=== PATIENT | female | born 1945 | race Caucasian/White ===

== ENCOUNTER 2023-10-23 07:47 | Emergency (ER) | payer MEDICARE, MEDICAID, SELFPAY ==
--- NOTE | ~2023-10-23 | CT_ITS ---
EXAMINATION: CT brain wo con DATE: 10/23/2023 08:27 INDICATION: Minor head injury TECHNIQUE: Computed tomography (CT) of the head was performed without intravenous contrast. The dose- length product was 1210.67 mGy-cm. Automated exposure control and iterative reconstruction technique were employed. COMPARISON: None FINDINGS: Generalized atrophy. There are scattered mild periventricular and subcortical white matter changes, most likely related to small vessel ischemic disease (microangiopathy). Study limited due to motion artifact. No ventriculomegaly or midline shift. There is intracranial atherosclerosis. There is chronic left maxillary sinus disease with mucoperiosteal reaction. Mastoids are pneumatized. No ac ryan intracranial hemorrhage, infarction, mass or mass effect. IMPRESSION: 1. No acute intracranial abnormality. Reviewed, dictated and finalized at location B.
--- NOTE | ~2023-10-23 | CT_ITS ---
EXAMINATION: CT cervical spine wo con DATE: 10/23/2023 08:28 INDICATION: Neck pain after fall TECHNIQUE: Computed tomography (CT) of the cervical spine was performed without intravenous contrast. The dose-length product was 672 mGy-cm. Automated exposure control and iterative reconstruction technique were employed. COMPARISON: None FINDINGS: There is advanced degenerative disc disease at all cervical spine levels. There is degenera tive anterolisthesis at C2-3 and C3-4. There is advanced multilevel uncinate and facet hypertrophy. M ild levocurvature of the cervical spine. Lung apices are normal. No significant paraspinal soft tissu e abnormality. Odontoid process is normal. Craniovertebral junction within normal limits. No evidence for perched facet. IMPRESSION: 1. No acute abnormality of the cervical spine. 2: Severe cervical spondylosis. Reviewed, dictated and finalized at location B.
--- NOTE | ~2023-10-23 | XR_ITS ---
XR hip BI 2V w AP pelvis 10/23/2023 08:34 Indication: Hip pain after fall Procedure: AP pelvis and 2 views each hip Comparison: No prior studies for comparison. Findings: There is a right total hip arthroplasty. Pelvic rings are intact. No acute fracture or trau matic malalignment. Mild osteoarthritis of the left hip. There is lower lumbar spondylosis. Impression: 1: No acute bone or joint abnormality. Reviewed, dictated and finalized at location B. Impression: 1: No acute bone or joint abnormality.
[2023-10-23 07:58] VITALS: BP 125/84; PULSE 94; RESP 14; TEMP 36.6; O2SAT 98
--- NOTE | 2023-10-23 08:02 | ED.FALL ---
HPI - Fall General Chief Complaint: Fall Stated Complaint: fall Time Seen by Provider: 10/23/23 07:52 Source: EMS History of Present Illness HPI Narrative: Patient is a 78-year-old female with schizoaffective disorder who presents ER after being found down on the ground at her long term. Patient cannot tell us why she fell. She has reported hip pain intermittently. She is not on any blood thinning medications. She arrives in a cervical collar. At baseline patient is oriented x1 and she appears to be at her baseline at this time. Review of Systems Review of Systems: ROS unobtainable: Yes unobtainable due to mental status PMFSH Past Medical History Medical History (Updated 10/23/23 @ 09:36 by Travis Colindres MD) Bipolar disorder GERD (gastroesophageal reflux disease) Hyperlipidemia Hyperparathyroidism Schizoaffective disorder Social History Social History (Updated 10/23/23 @ 08:05 by Travis Colindres MD) Social History: Patient resides at [facility] [place]. She is a DNR. Exam Narrative: GENERAL: Chronically ill-appearing, well-nourished, and in no acute distress. HEAD: Normocephalic, atraumatic. ENT: Mucous membranes moist. NECK: Supple. C-spine immobilized without midline tenderness. CHEST: Clear to auscultation. No respiratory distress. HEART: Regular rate and rhythm. Normal peripheral pulses. ABDOMEN: Soft, nontender, nondistended. EXTREMITIES: Normal range of motion. No edema. SKIN: Warm, dry, no rash. NEURO: Alert and oriented x1. Course Vital Signs Vital signs: Vital Signs Temperature 97.8 F 10/23/23 07:58 Pulse Rate 94 10/23/23 07:58 Respiratory Rate 14 10/23/23 07:58 Blood Pressure 125/84 10/23/23 07:58 Pulse Oximetry 98 10/23/23 07:58 Oxygen Delivery Room Air 10/23/23 07:58 Temperature 97.8 F 10/23/23 07:58 Pulse Rate 86 10/23/23 09:07 Respiratory Rate 12 10/23/23 09:07 Blood Pressure 128/64 10/23/23 09:07 Pulse Oximetry 98 10/23/23 09:07 Oxygen Delivery Room Air 10/23/23 07:58 MDM - Fall MDM Narrative Medical decision making narrative: -Course: No evidence in the ER. Patient is wheelchair-bound. Appropriate go back to facility. -Co-morbidities complicating care: Dementia -Social determinants of health: Resides in long term. -[facility] -Hx from independent Sources: care home report and EMS -Independent interpretation of studies: No UTI. Normal CMP and CBC. Imaging without fracture. -Interventions: None -Shared decision making / Disposition: Discharge home Lab Data 10/23/23 08:57 10/23/23 08:57 Labs: Lab Results 10/23/23 Range/Units 08:57 WBC 8.7 (4.5-10.0) K/mm3 RBC 4.88 (4.2-5.4) M/mm3 Hgb 14.1 (12.0-15.0) g/dL Hct 43.2 (37.0-47.0) % MCV 88.5 (80-100) fl MCH 28.9 (26-34) pg MCHC 32.6 (32-36) g/dl RDW 14.1 (11.5-14.5) % Plt Count 259 (150-375) k/mm3 MPV 12.0 H (7.4-10.4) fl Immature Gran % (Auto) 0.5 (0-0.5) % Neut % (Auto) 66.8 (45.5-73.1) % Lymph % (Auto) 22.4 (18.3-44.2) % Oxford % (Auto) 10.1 H (2.6-8.5) % Eos % (Auto) 0.0 (0-4.4) % Baso % (Auto) 0.2 (0.2-1.2) % Lymph # (Auto) 1.94 (0.9-3.2) K/mm3 Oxford # (Auto) 0.9 H (0.1-0.6) K/mm3 Eos # (Auto) 0.0 (0-0.3) K/mm3 Baso # (Auto) 0.0 (0.0-0.1) K/mm3 Abs Immat Gran (auto) 0.04 H (0.00-0.031) K/mm3 Absolute Neuts (auto) 5.8 (1.3-6.7) K/mm3 Absolute Nucleated RBC 0.000 (0.0-0.012) K/mm3 Nucleated RBC % 0.0 (0.0-0.2) % Sodium 141 (137-145) mmol/L Potassium 4.3 (3.4-5.0) mmol/L Chloride 104 (98-107) mmol/L Carbon Dioxide 31 H (22-30) mmol/L Anion Gap 6 (4-12) mmol/L BUN 14 (7-17) mg/dL Creatinine 0.90 (0.7-1.0) mg/dL Estim Creat Clear Calc Not Reportable Estimated GFR 60 (59 - ) Glucose 104 (65-110) mg/dL Calcium 10.4 H (8.4-10.2) mg/dL Total Bilirubin 0.3 (0.2-1.3
--- NOTE | 2023-10-23 08:22 | PC.NURSE ---
pt. to ct
[2023-10-23 08:50] VITALS: RESP 14; O2SAT 98
[2023-10-23 09:05] LABS: Basophils Percent Auto 0.2 % (0.2-1.2); Hematocrit 43.2 % (37.0-47.0); Hemoglobin 14.1 g/dL (12.0-15.0); Immature Granulocyte Absolute 0.04 K/mm3 (0.00-0.031); Immature Granulocyte Percent A 0.5 % (0-0.5); Lymphocytes Absolute Auto 1.94 K/mm3 (0.9-3.2); Lymphocytes Percent Auto 22.4 % (18.3-44.2); Mean Corpuscular HGB Conc 32.6 g/dl (32-36); Mean Corpuscular Hemoglobin 28.9 pg (26-34); Mean Corpuscular Volume 88.5 fl (80-100); Monocytes Absolute Auto 0.9 K/mm3 (0.1-0.6); Monocytes Percent Auto 10.1 % (2.6-8.5); Neutrophils Absolute Auto 5.8 K/mm3 (1.3-6.7); Neutrophils Percent Auto 66.8 % (45.5-73.1); Platelet Count Result 259 k/mm3 (150-375); Red Blood Count 4.88 M/mm3 (4.2-5.4); Red Cell Distribution Width 14.1 % (11.5-14.5); White Blood Count 8.7 K/mm3 (4.5-10.0)
[2023-10-23 09:06] LABS: Add Urine Microscopic? NO; Appearance Urine Clear (Clear); Bilirubin Urine Negative (Negative); Blood Urine Negative (Negative); Color Urine Yellow (Yellow); Glucose Urine UA Negative (Negative); Ketones Urine Negative (Negative); Leukocyte Esterase Ur Negative LEU/UL (Negative); Nitrate Urine Negative (Negative); Protein Urine Negative (Negative); Specific Grav Ur 1.008 (1.001-1.035); Urobilinogen Urine 0.2 mg/dL (<2.0)
[2023-10-23 09:07] VITALS: BP 128/64; PULSE 86; RESP 12; O2SAT 98
[2023-10-23 09:14] LABS: Alanine Aminotransferase 17 U/L (6-35); Albumin Level 3.8 g/dL (3.5-5.1); Alkaline Phosphatase 134 U/L (38-126); Anion Gap 6 mmol/L (4-12); Aspartate Amino Transferase 27 U/L (14-36); Bilirubin,Total 0.3 mg/dL (0.2-1.3); Blood Urea Nitrogen 14 mg/dL (7-17); Calcium 10.4 mg/dL (8.4-10.2); Carbon Dioxide 31 mmol/L (22-30); Chloride 104 mmol/L (98-107); Estimated Glomerular Filt Rate 60; Glucose 104 mg/dL (65-110); Potassium 4.3 mmol/L (3.4-5.0); Sodium 141 mmol/L (137-145)
[2023-10-23 09:47] VITALS: BP 125/78; PULSE 82; RESP 12; TEMP 36.7; O2SAT 100
--- NOTE | 2023-10-23 10:04 | PC.NURSE ---
attempted to call report x2 no answer
== END 2023-10-23 10:41 ==
PROVIDERS: Emergency Provider Emergency Medicine; PCP Internal Medicine
DX: F31.9 Bipolar disorder, unspecified (principal); K21.9 Gastro-esophageal reflux disease without esophagitis; E78.5 Hyperlipidemia, unspecified; F20.9 Schizophrenia, unspecified; W19.XXXA Unspecified fall, initial encounter
CPT/HCPCS: 36415; 70450; 72125; 73521; 80053; 81003; 85025; 99284

== ENCOUNTER 2023-10-30 07:46 | Inpatient (IN) | payer MEDICARE, MEDICAID, SELFPAY ==
[2023-10-30] VITALS (17 sets, daily range): BP systolic 103–133; BP diastolic 33–85; PULSE 66–120; RESP 12–20; TEMP 36.4–37.9; O2SAT 88–100; BMI 25.1
--- NOTE | ~2023-10-30 | CT_ITS ---
EXAMINATION: CT brain wo con DATE: 10/30/2023 08:31 INDICATION: Head injury. Fall. TECHNIQUE: Computed tomography (CT) of the head was performed without intravenous contrast. The mA wa s adjusted according to patient size. Iterative reconstruction technique was employed. The dose-lengt h product was 605.33 mGy-cm. COMPARISON: Head CT 10/23/2023 FINDINGS: There is no intracranial hemorrhage, acute infarction, or abnormal intracranial mass lesion . The ventricles are normal in size. There is mucosal thickening in the paranasal sinuses. There are likely changes of ocular lens replacement surgeries. The mastoid air cells are normal. IMPRESSION: 1. Normal brain. Reviewed, dictated and finalized at location A. IMPRESSION: 1. Normal brain.
--- NOTE | ~2023-10-30 | XR_ITS ---
EXAMINATION: XR pelvis 1-2V DATE: 10/30/2023 08:21 INDICATION: Fall. TECHNIQUE: An anteroposterior view of the pelvis was obtained. COMPARISON: Pelvis radiograph 10/23/2023 FINDINGS: There is a total right hip arthroplasty in near-anatomic alignment with acetabular protrusi o. No periprosthetic lucency to suggest loosening or infection. No fracture. There is mild left hip o steoarthritis. There is severe lumbar spondylosis. IMPRESSION: 1. Total right hip arthroplasty in near-anatomic alignment. 2. Mild left hip osteoarthritis. Reviewed, dictated and finalized at location A.
--- NOTE | ~2023-10-30 | CT_ITS ---
EXAMINATION: CT facial & cervical spine wo DATE: 10/30/2023 08:31 INDICATION: Head injury. TECHNIQUE: Computed tomography (CT) of the maxillofacial region and cervical spine was performed with out intravenous contrast. Automated exposure control and iterative reconstruction technique were empl oyed. The dose-length product was 309.28 mGy-cm. COMPARISON: CT cervical spine 10/23/2023 FINDINGS: MAXILLOFACIAL CT: There are likely changes of ocular lens replacement surgeries. There is mucosal thickening in the par anasal sinuses. There is thickening and sclerosis of the venegas of left maxillary sinus. There is left bynum deviation of the nasal septum. There are fractures of the nasal bones. The mastoid air cells are normal. CERVICAL SPINE CT: The lung apices demonstrate groundglass opacities, left worse than right. There is a small left pleur al effusion. There is 8 degrees dextrocurvature of cervical spine. There is 2 mm anterolisthesis of C 2 on C3 and 3 mm anterolisthesis of C3 on C4. There is mild chronic anterior wedging of C7, T1, and T 2 vertebral bodies. There is severely decreased disc height from C3-C4 through C6-C7 and mildly decre ased disc height at C7-T1. The following disc levels are specifically discussed: C2-C3: There is mild right and moderate left uncovertebral joint osteoarthritis. There is mild right and severe left facet joint osteoarthritis. There is mild left neural foraminal stenosis. There is mi ld central canal stenosis. C3-C4: There is severe right and mild left uncovertebral joint osteoarthritis. There is severe bilate ral facet joint osteoarthritis. There is mild right and moderate left neural foraminal stenosis. Ther e is mild central canal stenosis. C4-C5: There is severe bilateral uncovertebral joint osteoarthritis. There is moderate bilateral face t joint osteoarthritis. There is mild bilateral neural foraminal stenosis. There is mild central dileep l stenosis. C5-C6: There is severe bilateral uncovertebral joint osteoarthritis. There is severe right and modera te left facet joint osteoarthritis. There is mild bilateral neural foraminal stenosis. There is mild central canal stenosis. C6-C7: There is severe bilateral uncovertebral joint osteoarthritis. There is severe right and modera te left facet joint osteoarthritis. There is mild bilateral neural foraminal stenosis. There is mild central canal stenosis. C7-T1: There is mild bilateral uncovertebral joint osteoarthritis. There is severe bilateral facet selma int osteoarthritis. There is mild left neural foraminal stenosis. There is no central canal stenosis. IMPRESSION: 1. Fractures of the nasal bones. 2. Severe cervical spondylosis. Reviewed, dictated and finalized at location A.
--- NOTE | ~2023-10-30 | XR_ITS ---
EXAMINATION: XR chest 1V DATE: 10/30/2023 08:21 INDICATION: Fall. TECHNIQUE: A single frontal view of the chest was obtained. COMPARISON: None. FINDINGS: The patient is rotated to her left. There are airspace opacities in left mid and lower lung zones. There is a small left pleural effusion. No pneumothorax. The heart size is normal. IMPRESSION: 1. Airspace opacities in left mid and lower lung zones, consistent with atelectasis versus pneumonia. 2. Small left pleural effusion. Reviewed, dictated and finalized at location A. IMPRESSION: 1. Airspace opacities in left mid and lower lung zones, consistent with atelect asis versus pneumonia. 2. Small left pleural effusion.
--- NOTE | 2023-10-30 07:57 | ED.FALL ---
HPI - Fall General Chief Complaint: Fall Stated Complaint: fall Time Seen by Provider: 10/30/23 07:51 History of Present Illness HPI Narrative: This is a 78-year-old female with a past medical history significant for advanced dementia, bipolar schizoaffective disorder who presents to the emergency department as a ground level mechanical fall from her fdc. Patient was being taken to breakfast this morning in a wheelchair, patient started to get out of the wheelchair by herself and fell face 1st onto the ground. She is normally nonambulatory, bed-bound and requires assistance for getting around. She did not lose consciousness as reported by EMS but and she does not take any blood thinner medications on review of the EMR. Patient presently is awake and at her baseline mentation which is alert and oriented to only herself. No acute changes from baseline on review of the EMR, by EMS report, by fdc report. Patient herself states that her face and neck are hurting her. She denies any other concerns, not able to obtain a full review of systems secondary to patient's level of mental status. She has obvious trauma to her facial bones with left-sided epistaxis that is currently well controlled. Related Data Home Medications Medication Instructions Recorded Confirmed acetaminophen 500 mg tablet 1,000 mg PO Q4H PRN Pain 10/30/23 10/30/23 aluminum-mag hydroxide-simethicone 30 ml PO Q6H PRN Indigestion 10/30/23 10/30/23 400 mg-400 mg-40 mg/5 mL oral susp (Mylanta Maximum Strength) aspirin 81 mg tablet,delayed 81 mg PO DAILY 10/30/23 10/30/23 release calcium carbonate 600 mg-vitamin 1 tablet PO DAILY 10/30/23 10/30/23 D3 10 mcg (400 unit) chewable tablet (Calcium 600 with Vitamin D3) clozapine 100 mg tablet 100 mg PO BID 10/30/23 10/30/23 clozapine 25 mg tablet 25 mg PO DAILY 10/30/23 10/30/23 clozapine 50 mg tablet 50 mg PO DAILY 10/30/23 10/30/23 dextromethorphan-guaifenesin 5 See Rx Instructions .Route .COMPLEX 10/30/23 10/30/23 mg-100 mg/5 mL oral liquid (Robitussin Cough-Chest Congestion DM) docusate sodium 100 mg capsule 100 mg PO HS 10/30/23 10/30/23 escitalopram oxalate 10 mg tablet 10 mg PO HS 10/30/23 10/30/23 fluticasone propionate 50 2 spray intranasal HS 10/30/23 10/30/23 mcg/actuation nasal spray,suspension hydrocortisone 1 % topical cream 1 applic topical Q12H PRN Itching 10/30/23 10/30/23 linaclotide 145 mcg capsule 145 mcg PO DAILY 10/30/23 10/30/23 (Linzess) loperamide 2 mg capsule 2 mg PO Q6H PRN Diarrhea 10/30/23 10/30/23 magnesium hydroxide 400 mg/5 mL 30 ml PO PRN PRN Constipation 10/30/23 10/30/23 oral suspension (Milk of Magnesia) multivitamin with iron 1 tablet PO DAILY 10/30/23 10/30/23 oxybutynin chloride 5 mg tablet 5 mg PO DAILY 10/30/23 10/30/23 pantoprazole 40 mg tablet,delayed 40 mg PO DAILY 10/30/23 10/30/23 release polyethylene glycol 3350 17 gram 17 g PO DAILY PRN Constipation 10/30/23 10/30/23 oral powder packet (Miralax) Allergies Allergy/AdvReac Type Severity Reaction Status Date / Time Penicillins Allergy Hives Verified 10/23/23 10:03 Review of Systems Review of Systems: ROS unobtainable: Yes unobtainable due to medical condition and unobtainable due to mental status [facility] Past Medical History Medical History (Updated 10/30/23 @ 20:52 by Jamie Kemp MD) Bipolar disorder Dementia Gastroesophageal reflux disease Hyperlipidemia Hyperparathyroidism Schizoaffective disorder Surgical History Surgical History (Updated 10/30/23 @ 14:22 by Rosa Casper PA-C) History of cataract extraction with lens replacement History of total right hip arthroplasty Social History Social History (Updated 10/30/23 @ 14:17 by Rosa Casper PA-C) Social History: Surrogate medical decision maker: Leighann Villeda. Code status: Do not resuscitate. Smoking status: Unknown if ever smoked Additional living arrangements comments:
[2023-10-30] MEDS: LACTATED RINGERS 1,000 ML 999 ML IV CONT (08:08)
[2023-10-30] MEDS: MORPHINE SULFATE (*CRX) 4 MG/ML INJ IV PUSH (08:08)
[2023-10-30 08:10] LABS: Hematocrit 37.4 % (37.0-47.0); Hemoglobin 12.6 g/dL (12.0-15.0); Mean Corpuscular HGB Conc 33.7 g/dl (32-36); Mean Corpuscular Hemoglobin 29.5 pg (26-34); Mean Corpuscular Volume 87.6 fl (80-100); Mean Platelet Volume 12.5 fl (7.4-10.4); Platelet Count Result 224 k/mm3 (150-375); Red Blood Count 4.27 M/mm3 (4.2-5.4); Red Cell Distribution Width 14.1 % (11.5-14.5); White Blood Count 16.3 K/mm3 (4.5-10.0)
[2023-10-30 08:20] LABS: Anion Gap 11 mmol/L (4-12); Blood Urea Nitrogen 15 mg/dL (7-17); Calcium 10.1 mg/dL (8.4-10.2); Carbon Dioxide 24 mmol/L (22-30); Chloride 102 mmol/L (98-107); Estimated CRCL calculation 40 ml/min; Estimated Glomerular Filt Rate 60; Glucose 165 mg/dL (65-110); Magnesium 1.6 mg/dL (1.6-2.3); Potassium 3.9 mmol/L (3.4-5.0); Sodium 137 mmol/L (137-145)
[2023-10-30 08:22] LABS: Prothrombin Time 13.9 Seconds (11.1-14.7)
[2023-10-30 08:23] LABS: Partial Thromboplastin Time 32.6 Seconds (22.3-36.8)
[2023-10-30 08:37] LABS: Total Cells Counted 100
[2023-10-30 08:38] LABS: Band Neutrophils Percent 15 % (0-6); Basophils Percent Manual 0 % (0-1); Eosinophils Percent Manual 0 % (0-4); Lymphocytes Absolute Manual 0.32 K/mm3 (1.1-4.5); Lymphocytes Percent Manual 2 % (18-44); Monocytes Absolute Manual 0.65 K/mm3 (0.1-0.90); Monocytes Percent Manual 4 % (3-9); Neutrophils Absolute Manual 15.32 K/mm3 (1.7-7.2); Neutrophils Percent Manual 79 % (46-73)
[2023-10-30 08:39] LABS: Platelet Estimate Adequate (Adequate); Schistocytes None Seen
[2023-10-30] MEDS: DOXYCYCLINE 100 MG/NS 100 ML 100 MG/100 ML BAG IVPB (09:49)
--- NOTE | 2023-10-30 09:56 | PC.NURSE ---
Pt sleeping with even chest rise and fall. This RN repeatedly adjusting pt arm with PIV to continue IVF. Arm board applied. Pt continues to rest comfortably.
--- NOTE | 2023-10-30 09:57 | PC.NURSE ---
Pt took off oxygen NC while sleeping. Room air 88%. 2L NC reapplied, oxygen increased to 96%.
--- NOTE | 2023-10-30 13:47 | PC.NURSE ---
This patient, Salome Villeda, was admitted to Medical Room 255-. Patient/family oriented to hospital policies and general routines including ID bracelet, bed and alarms, visiting hours, pain management, procedures, bathroom and other care routines, personal items, smoking policy, room service/diet, and visiting hours. Information on how to activate the Rapid Response Team has been discussed. Patient/Family are encouraged to report perceived risks to care and to ask questions if they do not understand what they are told or what they should do.
--- NOTE | 2023-10-30 14:10 | PM.IMHP ---
H&P: HPI History of Present Illness Date/Time: 10/30/23 14:10 Chief Complaint: Fall. Narrative: This is a 78-year-old female with history of schizoaffective disorder, bipolar disorder, hyperparathyroidism, hyperlipidemia, and gastroesophageal reflux disease who presented to the emergency department via EMS from a local nursing facility for evaluation after a fall. She is not the greatest historian and a majority the following is obtained via a review of her EMR in paperwork which accompanies her from the [facility]. At baseline she was reportedly alert and oriented x2 and is nonambulatory. According to EMS, she was on her way to breakfast when she tried to stand up from her wheelchair by herself and fell face 1st onto the ground. There was no reported loss of consciousness. In the ED she complained of pain in her face and neck and she still has some mild pain in her nose. With further questioning she endorses a mild, nonproductive cough. She states she is otherwise feeling okay and denies fever, chills, sweats, headache, vision changes, sinus congestion, sore throat, chest pain, pleuritic pain, shortness of breath, nausea, vomiting, diarrhea, and dysuria. In the ED: Vital signs on arrival include a temperature of 100.2? F, SpO2 of 88% on room air, blood pressure 123/50, respiratory rate 19, and heart rate of 120. Labs were significant for WBC count of 16.3 with 15% bands, sodium 137, BUN 15, creatinine 0.90, calcium 10.1, magnesium 1.6. CT of the head, cervical spine, and facial bones showed fractures of the nasal bones in severe cervical spondylosis with normal brain CT. Chest x-ray showed airspace opacities in the left mid and lower lung zones consistent with atelectasis versus pneumonia small left pleural effusion. Pelvis x-ray showed no acute findings. Review of Systems Review of Systems: Unable to be obtained accurately as she is a poor historian. [facility] Past Medical History Medical History (Updated 10/30/23 @ 22:29 by Rosa Casper PA-C) Bipolar disorder Gastroesophageal reflux disease Hyperlipidemia Hyperparathyroidism Schizoaffective disorder Surgical History Surgical History (Updated 10/30/23 @ 14:22 by Rosa Casper PA-C) History of cataract extraction with lens replacement History of total right hip arthroplasty Family History Family History (Updated 10/30/23 @ 22:22 by Rosa Casper PA-C) Other Family history unknown Social History Social History Social History: Surrogate medical decision maker: Leighann Villeda. Code status: Do not resuscitate. Smoking status: Unknown if ever smoked Additional living arrangements comments: Patient resides at [facility]. Spiritual care concerns: No Meds Home Medications and Allergies Home Medications Medication Instructions Recorded Confirmed Type acetaminophen 500 mg tablet 1,000 mg PO Q4H PRN Pain 10/30/23 10/30/23 History aluminum-mag hydroxide-simethicone 30 ml PO Q6H PRN Indigestion 10/30/23 10/30/23 History 400 mg-400 mg-40 mg/5 mL oral susp (Mylanta Maximum Strength) aspirin 81 mg tablet,delayed 81 mg PO DAILY 10/30/23 10/30/23 History release calcium carbonate 600 mg-vitamin 1 tablet PO DAILY 10/30/23 10/30/23 History D3 10 mcg (400 unit) chewable tablet (Calcium 600 with Vitamin D3) clozapine 100 mg tablet 100 mg PO BID 10/30/23 10/30/23 History clozapine 25 mg tablet 25 mg PO DAILY 10/30/23 10/30/23 History clozapine 50 mg tablet 50 mg PO DAILY 10/30/23 10/30/23 History dextromethorphan-guaifenesin 5 See Rx Instructions .Route .COMPLEX 10/30/23 10/30/23 History mg-100 mg/5 mL oral liquid (Robitussin Cough-Chest Congestion DM) docusate sodium 100 mg capsule 100 mg PO HS 10/30/23 10/30/23 History escitalopram oxalate 10 mg tablet 10 mg PO HS 10/30/23 10/30/23 History fluticasone propionate 50 2 spray intranasal HS 10/30/23
[2023-10-30 15:03] LABS: Lactic Acid Reflex 1.5 mmol/L (0.7-2.0)
[2023-10-30 15:05] LABS: CRP 6.6 mg/dL (<1.0)
[2023-10-30 15:42] LABS: Procalcitonin 2.3 ng/mL
[2023-10-30 15:56] LABS: Influenza A QL RT-PCR Negative (Negative); Influenza B QL RT-PCR Negative (Negative); RSV RNA, RT-PCR Negative (Negative); SARS-CoV-2 RNA PCR Negative (Negative)
[2023-10-30 16:30] LABS: MRSA (PCR) NOT DETECTED (NOT DETECTE)
[2023-10-30] MEDS: DOCUSATE SODIUM 100 MG CAPSULE PO (21:07)
[2023-10-30] MEDS: FLUTICASONE PROPIONATE 0.05% NA SPR 16 GM BTL (*BKC) 2 SPRAY NASAL (21:07)
[2023-10-30] MEDS: ESCITALOPRAM OXALATE 10 MG TABLET PO (21:07)
[2023-10-30 23:06] LABS: Hemoglobin A1C 5.6 % (<5.7)
[2023-10-31] MEDS: DOXYCYCLINE HYCLATE 100 MG TABLET PO ×2 (03:15→08:51)
[2023-10-31 04:55] LABS: Hematocrit 36.6 % (37.0-47.0); Hemoglobin 11.8 g/dL (12.0-15.0); Mean Corpuscular HGB Conc 32.2 g/dl (32-36); Mean Corpuscular Hemoglobin 28.7 pg (26-34); Mean Corpuscular Volume 89.1 fl (80-100); Mean Platelet Volume 12.3 fl (7.4-10.4); Platelet Count Result 217 k/mm3 (150-375); Red Blood Count 4.11 M/mm3 (4.2-5.4); Red Cell Distribution Width 14.3 % (11.5-14.5); White Blood Count 10.4 K/mm3 (4.5-10.0)
[2023-10-31 05:13] LABS: Anion Gap 4 mmol/L (4-12); Blood Urea Nitrogen 12 mg/dL (7-17); Calcium 10.5 mg/dL (8.4-10.2); Carbon Dioxide 28 mmol/L (22-30); Chloride 106 mmol/L (98-107); Estimated CRCL calculation 45 ml/min; Estimated Glomerular Filt Rate > 60; Glucose 92 mg/dL (65-110); Magnesium 1.9 mg/dL (1.6-2.3); Potassium 3.9 mmol/L (3.4-5.0); Sodium 138 mmol/L (137-145)
[2023-10-31 05:30] LABS: Add Urine Microscopic? YES; Appearance Urine Clear (Clear); Bacteria Urine None Seen /hpf; Bilirubin Urine Negative (Negative); Blood Urine Negative (Negative); Color Urine Yellow (Yellow); Glucose Urine UA Negative (Negative); Ketones Urine Negative (Negative); Leukocyte Esterase Ur Trace LEU/UL (Negative); Need Manual Microscopic Reviewed; Nitrate Urine Negative (Negative); Non Pathogenic Casts 0-2; Protein Urine Negative (Negative); RBC Urine 0-2 /hpf (0-2); Specific Grav Ur 1.013 (1.001-1.035); Squamous Epithelial Cell Urine None Seen /hpf (Few); Urobilinogen Urine 0.2 mg/dL (<2.0); WBC Urine 0-5 /hpf (0-3)
[2023-10-31 06:00] VITALS: BP 112/40; PULSE 72; RESP 20; TEMP 36.6; O2SAT 94
[2023-10-31] MEDS: LINACLOTIDE 145 MCG CAPSULE PO (06:59)
[2023-10-31 08:34] VITALS: O2SAT 95
[2023-10-31 08:40] VITALS: O2SAT 95
[2023-10-31] MEDS: CALCIUM/VITAMIN D 500 MG/5 MCG (200 I.U.) TABLET PO (08:51)
[2023-10-31] MEDS: THERAPEUTIC MULTIVITAMINS/MINERALS TAB (*BKC) 1 TABLET PO (08:51)
[2023-10-31] MEDS: PANTOPRAZOLE 40 MG TABLET PO (08:51)
[2023-10-31] MEDS: ASPIRIN 81 MG ENTERIC TABLET PO (08:52)
[2023-10-31] MEDS: oxyBUTYnin CHLORIDE 5 MG TABLET PO (08:52)
--- NOTE | 2023-10-31 10:03 | PM.IMPN ---
Progress Note: A&P Assessment and Plan (1) Acute respiratory failure with hypoxia: Code(s): J96.01 - Acute respiratory failure with hypoxia Status: Acute Assessment and Plan: 10/31/23: patient presented with O2 sat of 88% on room air and was placed on 2 L nasal cannula continue to wean O2 for saturation greater than 92% chest x-ray showing airspace opacities in the left mid and lower lung zones consistent with pneumonia, small left pleural effusion blood cultures were obtained and are pending patient started on doxycycline and Rocephin (2) Community acquired pneumonia: Code(s): J18.9 - Pneumonia, unspecified organism Status: Acute Assessment and Plan: 10/31/23: chest x-ray showing pneumonia blood cultures were obtained and are pending continue Rocephin, will add azithromycin DC doxycycline considering MRSA is negative mycoplasma, urine strep, urine Legionella obtained and are pending (3) Fall from chair: Code(s): W07.XXXA - Fall from chair, initial encounter Status: Acute Assessment and Plan: 10/31/23: status post fall pelvis x-ray showed total right hip arthroplasty in near anatomic alignment, mild left hip osteoarthritis head CT was negative head/cervical spine / facial bone CT showed fractures of the nasal bones, severe cervical spondylosis. PT and OT ordered continue pain control (4) Nasal bone fractures: Code(s): S02.2XXA - Fracture of nasal bones, initial encounter for closed fracture Status: Acute Assessment and Plan: see above (5) Schizoaffective disorder: Code(s): F25.9 - Schizoaffective disorder, unspecified Status: Chronic Assessment and Plan: 10/31/23: continue Lexapro Hold clozapine as it is non-formulary Start Seroquel 75mg BID and Seroquel 50 mg at noon Time Spent With Patient Time with patient: 25 - 35 minutes Subjective Date/time seen: 10/31/23 10:03 Interval history: Interval history: This is a 78-year-old female who presented to the hospital on 10/30/2023 for evaluation after a fall. Workup in the hospital included a chest x-ray which showed airspace opacities in the left mid and lower lung zones consistent with pneumonia, small left pleural effusion. Pelvis x-ray shows total right hip arthroplasty in near anatomic alignment, mild left hip osteoarthritis, severe lumbar spondylosis. Head CT was negative. Head/cervical spine / facial bone CT shows fractures of the nasal bones, severe cervical spondylosis. Initial labs shown a white blood cell count of 16.3 with bandemia, INR 1.0, lactic acid was normal at 1.5, C reactive protein 6.6, procalcitonin 2.3. UA was obtained and showed trace leukocytes, otherwise normal. MRSA was negative. Respiratory panel was negative for influenza a and B, RSV, COVID. Urine strep, urine Legionella, and mycoplasma are all pending. Blood cultures were obtained and are pending. Patient was given a dose of Rocephin and doxycycline for community-acquired pneumonia coverage. Subjective: 10/31/23: Patient denies any fever, chills, nausea, vomiting, diarrhea, chest pain or shortness of breath. Patient endorses some abdominal pain. She is alert however she is confused, tearful at times per nursing report. Nursing also reported that she has been having hallucinations last night about having a baby and that someone came in and took her baby and put it up for adoption. Review of Systems Review of Systems: All systems reviewed & are unremarkable except as noted in HPI and below Constitutional: Constitutional: Reports as per HPI and Reports no additional constitutional complaints Eyes: Eyes: Reports as per HPI and Reports no additional eye complaints ENT: Reports system reviewed and no additional complaints, except as documented and Reports as per HPI Cardiovascular: Cardiovascular: Reports as per HPI and Reports no additional cardiovascular complaints Re
[2023-10-31] MEDS: AZITHROMYCIN 250 MG TABLET 500 MG PO (12:26)
[2023-10-31 14:00] VITALS: BP 119/50; PULSE 73; RESP 18; TEMP 36.5; O2SAT 94
[2023-10-31] MEDS: QUEtiapine FUMARATE 25 MG TABLET 50 MG PO (15:28)
[2023-10-31 20:30] VITALS: O2SAT 94
[2023-10-31] MEDS: FLUTICASONE PROPIONATE 0.05% NA SPR 16 GM BTL (*BKC) 2 SPRAY NASAL (20:31)
[2023-10-31] MEDS: ESCITALOPRAM OXALATE 10 MG TABLET PO (20:31)
[2023-10-31] MEDS: DOCUSATE SODIUM 100 MG CAPSULE PO (20:31)
[2023-10-31] MEDS: QUEtiapine FUMARATE 25 MG TABLET 75 MG PO (20:31)
[2023-10-31 21:57] VITALS: BP 127/58; PULSE 90; RESP 18; TEMP 36.9; O2SAT 95
[2023-11-01] MEDS: LINACLOTIDE 145 MCG CAPSULE PO (05:45)
[2023-11-01 06:00] VITALS: BP 129/44; PULSE 72; RESP 18; TEMP 36.8; O2SAT 96
[2023-11-01 06:11] LABS: Basophils Percent Auto 0.3 % (0.2-1.2); Hematocrit 36.8 % (37.0-47.0); Hemoglobin 11.8 g/dL (12.0-15.0); Immature Granulocyte Absolute 0.05 K/mm3 (0.00-0.031); Immature Granulocyte Percent A 0.6 % (0-0.5); Lymphocytes Absolute Auto 1.92 K/mm3 (0.9-3.2); Lymphocytes Percent Auto 24.1 % (18.3-44.2); Mean Corpuscular HGB Conc 32.1 g/dl (32-36); Mean Corpuscular Hemoglobin 28.6 pg (26-34); Mean Corpuscular Volume 89.1 fl (80-100); Mean Platelet Volume 12.1 fl (7.4-10.4); Monocytes Absolute Auto 0.7 K/mm3 (0.1-0.6); Monocytes Percent Auto 9.1 % (2.6-8.5); Neutrophils Absolute Auto 5.3 K/mm3 (1.3-6.7); Neutrophils Percent Auto 65.9 % (45.5-73.1); Platelet Count Result 233 k/mm3 (150-375); Red Blood Count 4.13 M/mm3 (4.2-5.4); Red Cell Distribution Width 14.2 % (11.5-14.5)
[2023-11-01 06:26] LABS: Alanine Aminotransferase 20 U/L (6-35); Albumin Level 3.1 g/dL (3.5-5.1); Alkaline Phosphatase 109 U/L (38-126); Anion Gap 4 mmol/L (4-12); Aspartate Amino Transferase 36 U/L (14-36); Bilirubin,Total 0.2 mg/dL (0.2-1.3); Blood Urea Nitrogen 11 mg/dL (7-17); Calcium 10.5 mg/dL (8.4-10.2); Carbon Dioxide 30 mmol/L (22-30); Chloride 105 mmol/L (98-107); Estimated CRCL calculation 40 ml/min; Estimated Glomerular Filt Rate 60; Glucose 91 mg/dL (65-110); Potassium 3.9 mmol/L (3.4-5.0); Sodium 139 mmol/L (137-145)
[2023-11-01 08:00] VITALS: O2SAT 94
--- NOTE | 2023-11-01 08:28 | PCOTNOTE ---
Attempted to see pt for OT evaluation however pt is refusing to get up at this time. Pt's speech is difficult to understand most of the time. Will continue to follow for OT eval.
[2023-11-01 08:46] VITALS: O2SAT 94
--- NOTE | 2023-11-01 09:18 | P.PNIM_ITS ---
Progress Note: A&P Assessment and Plan (1) Acute respiratory failure with hypoxia: Code(s): J96.01 - Acute respiratory failure with hypoxia Status: Acute Assessment and Plan: 10/31/23: * patient presented with O2 sat of 88% on room air and was placed on 2 L nasal cannula * continue to wean O2 for saturation greater than 92% * chest x-ray showing airspace opacities in the left mid and lower lung zones consistent with pneumonia, small left pleural effusion * blood cultures were obtained and are pending * patient started on doxycycline and Rocephin 11/01/23: * Currently on 1L NC * Continue to wean O2 for an oxygen saturation of 92% or greater * Will transition to Levaquin oral (2) Community acquired pneumonia: Code(s): J18.9 - Pneumonia, unspecified organism Status: Acute Assessment and Plan: 10/31/23: * chest x-ray showing pneumonia * blood cultures were obtained and are pending * continue Rocephin, will add azithromycin * DC doxycycline considering MRSA is negative * mycoplasma, urine strep, urine Legionella obtained and are pending 11/01/23: * Continue to wean O2 for a saturation greater than 92% * blood cultures showing no growth on preliminary read * mycoplasma, urine strep, urine Legionella obtained and are pending (3) Fall from chair: Code(s): W07.XXXA - Fall from chair, initial encounter Status: Acute Assessment and Plan: 10/31/23: * status post fall * pelvis x-ray showed total right hip arthroplasty in near anatomic alignment, mild left hip osteoarthritis * head CT was negative * head/cervical spine / facial bone CT showed fractures of the nasal bones, severe cervical spondylosis. * PT and OT ordered * continue pain control 11/01/23: * Continue PT and OT * Continue pain control (4) Nasal bone fractures: Code(s): S02.2XXA - Fracture of nasal bones, initial encounter for closed fracture Status: Acute Assessment and Plan: see above (5) Schizoaffective disorder: Code(s): F25.9 - Schizoaffective disorder, unspecified Status: Chronic Assessment and Plan: 10/31/23: * continue Lexapro * Hold clozapine as it is non-formulary * Start Seroquel 75mg BID and Seroquel 50 mg at noon 11/01/23: * No change to current treatment plan (6) Urinary retention: Code(s): R33.9 - Retention of urine, unspecified Status: Acute Assessment and Plan: 11/01/23: * Burnette catheter placed for urinary retention last night. Patient had greater than 650 ml in bladder * Will do voiding trial tomorrow Time Spent With Patient Time with patient: 25 - 35 minutes Subjective Date/time seen: 11/01/23 09:18 Interval history: Interval history: This is a 78-year-old female who presented to the hospital on 10/30/2023 for evaluation after a fall. Workup in the hospital included a chest x-ray which showed airspace opacities in the left mid and lower lung zones consistent with pneumonia, small left pleural effusion. Pelvis x-ray shows total right hip arthroplasty in near anatomic alignment, mild left hip osteoarthritis, severe lumbar spondylosis. Head CT was negative. Head/cervical spine / facial bone CT shows fractures of the nasal bones, severe cervical spondylosis. Initial labs shown a white blood cell count of 16.3 with bandemia, INR 1.0, lactic acid was normal at 1.5, C reactive protein 6.6, procalcitonin 2.3. UA was obtained and showed trace leukocytes, otherwise normal. MRSA was negative. Respiratory panel was negative for influenza
--- NOTE | 2023-11-01 09:18 | PM.IMPN ---
Progress Note: A&P Assessment and Plan (1) Acute respiratory failure with hypoxia: Code(s): J96.01 - Acute respiratory failure with hypoxia Status: Acute Assessment and Plan: 10/31/23: patient presented with O2 sat of 88% on room air and was placed on 2 L nasal cannula continue to wean O2 for saturation greater than 92% chest x-ray showing airspace opacities in the left mid and lower lung zones consistent with pneumonia, small left pleural effusion blood cultures were obtained and are pending patient started on doxycycline and Rocephin 11/01/23: Currently on 1L NC Continue to wean O2 for an oxygen saturation of 92% or greater Will transition to Levaquin oral (2) Community acquired pneumonia: Code(s): J18.9 - Pneumonia, unspecified organism Status: Acute Assessment and Plan: 10/31/23: chest x-ray showing pneumonia blood cultures were obtained and are pending continue Rocephin, will add azithromycin DC doxycycline considering MRSA is negative mycoplasma, urine strep, urine Legionella obtained and are pending 11/01/23: Continue to wean O2 for a saturation greater than 92% blood cultures showing no growth on preliminary read mycoplasma, urine strep, urine Legionella obtained and are pending (3) Fall from chair: Code(s): W07.XXXA - Fall from chair, initial encounter Status: Acute Assessment and Plan: 10/31/23: status post fall pelvis x-ray showed total right hip arthroplasty in near anatomic alignment, mild left hip osteoarthritis head CT was negative head/cervical spine / facial bone CT showed fractures of the nasal bones, severe cervical spondylosis. PT and OT ordered continue pain control 11/01/23: Continue PT and OT Continue pain control (4) Nasal bone fractures: Code(s): S02.2XXA - Fracture of nasal bones, initial encounter for closed fracture Status: Acute Assessment and Plan: see above (5) Schizoaffective disorder: Code(s): F25.9 - Schizoaffective disorder, unspecified Status: Chronic Assessment and Plan: 10/31/23: continue Lexapro Hold clozapine as it is non-formulary Start Seroquel 75mg BID and Seroquel 50 mg at noon 11/01/23: No change to current treatment plan (6) Urinary retention: Code(s): R33.9 - Retention of urine, unspecified Status: Acute Assessment and Plan: 11/01/23: Burnette catheter placed for urinary retention last night. Patient had greater than 650 ml in bladder Will do voiding trial tomorrow Time Spent With Patient Time with patient: 25 - 35 minutes Subjective Date/time seen: 11/01/23 09:18 Interval history: Interval history: This is a 78-year-old female who presented to the hospital on 10/30/2023 for evaluation after a fall. Workup in the hospital included a chest x-ray which showed airspace opacities in the left mid and lower lung zones consistent with pneumonia, small left pleural effusion. Pelvis x-ray shows total right hip arthroplasty in near anatomic alignment, mild left hip osteoarthritis, severe lumbar spondylosis. Head CT was negative. Head/cervical spine / facial bone CT shows fractures of the nasal bones, severe cervical spondylosis. Initial labs shown a white blood cell count of 16.3 with bandemia, INR 1.0, lactic acid was normal at 1.5, C reactive protein 6.6, procalcitonin 2.3. UA was obtained and showed trace leukocytes, otherwise normal. MRSA was negative. Respiratory panel was negative for influenza a and B, RSV, COVID. Urine strep, urine Legionella, and mycoplasma are all pending. Blood cultures were obtained and are pending. Patient was given a dose of Rocephin and doxycycline for community-acquired pneumonia coverage. Subjective: 10/31/23: Patient denies any fever, chills, nausea, vomiting, diarrhea, chest pain or shortness of breath. Patient endorses some abdominal pain. She is alert however she is confused, tearful at
[2023-11-01] MEDS: levoFLOXacin 750 MG TABLET PO (10:04)
[2023-11-01] MEDS: QUEtiapine FUMARATE 25 MG TABLET 75 MG PO ×2 (10:05→20:15)
[2023-11-01] MEDS: ASPIRIN 81 MG ENTERIC TABLET PO (10:05)
[2023-11-01] MEDS: oxyBUTYnin CHLORIDE 5 MG TABLET PO (10:05)
[2023-11-01] MEDS: CALCIUM/VITAMIN D 500 MG/5 MCG (200 I.U.) TABLET PO (10:05)
[2023-11-01] MEDS: ACETAMINOPHEN 325 MG TABLET 650 MG PO (10:06)
[2023-11-01] MEDS: PANTOPRAZOLE 40 MG TABLET PO (10:06)
[2023-11-01] MEDS: THERAPEUTIC MULTIVITAMINS/MINERALS TAB (*BKC) 1 TABLET PO (10:06)
[2023-11-01 13:11] VITALS: BMI 25.4
[2023-11-01] MEDS: QUEtiapine FUMARATE 25 MG TABLET 50 MG PO (13:30)
[2023-11-01 13:42] VITALS: BP 111/71; PULSE 76; RESP 18; TEMP 37.2; O2SAT 95
--- NOTE | 2023-11-01 15:00 | PCOTNOTE ---
Attempted to see pt for OT evaluation. Pt is nonsensical at times and is refusing to participate or get out of bed. Pt's breakfast had just arrived and pt also refusing to try to eat. Per the RN, pt has been very confused. Will continue to follow for OT eval.
[2023-11-01 19:58] VITALS: PULSE 76; RESP 18; O2SAT 95
[2023-11-01] MEDS: DOCUSATE SODIUM 100 MG CAPSULE PO (20:15)
[2023-11-01] MEDS: ESCITALOPRAM OXALATE 10 MG TABLET PO (20:15)
[2023-11-01] MEDS: FLUTICASONE PROPIONATE 0.05% NA SPR 16 GM BTL (*BKC) 2 SPRAY NASAL (20:16)
[2023-11-01 21:56] VITALS: BP 132/54; PULSE 91; RESP 18; TEMP 37.4; O2SAT 95
[2023-11-02] MEDS: LINACLOTIDE 145 MCG CAPSULE PO (05:35)
[2023-11-02 05:59] LABS: Basophils Percent Auto 0.3 % (0.2-1.2); Hematocrit 38.8 % (37.0-47.0); Hemoglobin 12.6 g/dL (12.0-15.0); Immature Granulocyte Absolute 0.09 K/mm3 (0.00-0.031); Lymphocytes Absolute Auto 1.84 K/mm3 (0.9-3.2); Lymphocytes Percent Auto 19.6 % (18.3-44.2); Mean Corpuscular HGB Conc 32.5 g/dl (32-36); Mean Corpuscular Hemoglobin 28.6 pg (26-34); Mean Corpuscular Volume 88.2 fl (80-100); Mean Platelet Volume 12.7 fl (7.4-10.4); Monocytes Absolute Auto 0.8 K/mm3 (0.1-0.6); Monocytes Percent Auto 8.7 % (2.6-8.5); Neutrophils Absolute Auto 6.6 K/mm3 (1.3-6.7); Neutrophils Percent Auto 70.4 % (45.5-73.1); Platelet Count Result 267 k/mm3 (150-375); White Blood Count 9.4 K/mm3 (4.5-10.0)
[2023-11-02 06:00] VITALS: BP 142/49; PULSE 85; RESP 18; TEMP 36.9; O2SAT 94
[2023-11-02 06:17] LABS: Alanine Aminotransferase 18 U/L (6-35); Albumin Level 3.5 g/dL (3.5-5.1); Alkaline Phosphatase 113 U/L (38-126); Anion Gap 8 mmol/L (4-12); Aspartate Amino Transferase 30 U/L (14-36); Bilirubin,Total 0.2 mg/dL (0.2-1.3); Blood Urea Nitrogen 15 mg/dL (7-17); Calcium 10.7 mg/dL (8.4-10.2); Carbon Dioxide 28 mmol/L (22-30); Chloride 103 mmol/L (98-107); Estimated CRCL calculation 40 ml/min; Estimated Glomerular Filt Rate 60; Glucose 98 mg/dL (65-110); Potassium 4.1 mmol/L (3.4-5.0); Sodium 139 mmol/L (137-145)
--- NOTE | 2023-11-02 08:43 | PM.DS ---
DS: Admitting Diagnosis Discharge Date 11/02/23 Admitting Diagnosis Hypoxia Pneumonia Hyperglycemia Nasal fractures Fall from chair Schizoaffective disorder DS: Discharge Diagnosis Discharge Diagnosis (1) Acute respiratory failure with hypoxia: Code(s): J96.01 - Acute respiratory failure with hypoxia Status: Acute (2) Community acquired pneumonia: Code(s): J18.9 - Pneumonia, unspecified organism Status: Acute (3) Fall from chair: Code(s): W07.XXXA - Fall from chair, initial encounter Status: Acute (4) Nasal bone fractures: Code(s): S02.2XXA - Fracture of nasal bones, initial encounter for closed fracture Status: Acute (5) Schizoaffective disorder: Code(s): F25.9 - Schizoaffective disorder, unspecified Status: Chronic (6) Urinary retention: Code(s): R33.9 - Retention of urine, unspecified Status: Acute DS: Summary Hospital Course Reason for hospitalization: Hypoxia Pneumonia Hyperglycemia Nasal fractures Fall from chair Schizoaffective disorder Hospital Course: Interval history: This is a 78-year-old female who presented to the hospital on 10/30/2023 for evaluation after a fall. Workup in the hospital included a chest x-ray which showed airspace opacities in the left mid and lower lung zones consistent with pneumonia, small left pleural effusion. Pelvis x-ray shows total right hip arthroplasty in near anatomic alignment, mild left hip osteoarthritis, severe lumbar spondylosis. Head CT was negative. Head/cervical spine / facial bone CT shows fractures of the nasal bones, severe cervical spondylosis. Initial labs shown a white blood cell count of 16.3 with bandemia, INR 1.0, lactic acid was normal at 1.5, C reactive protein 6.6, procalcitonin 2.3. UA was obtained and showed trace leukocytes, otherwise normal. MRSA was negative. Respiratory panel was negative for influenza a and B, RSV, COVID. Urine strep, urine Legionella, and mycoplasma are all pending. Blood cultures were obtained and are pending. Patient was given a dose of Rocephin and doxycycline for community-acquired pneumonia coverage. Today blood cultures are still showing no growth to date on preliminary read. Patient was switched to oral Levaquin q.48h and is tolerating well. She is currently on room air with an O2 sat 94-95%. She is stable for discharge at this time. She will need to finish all of her antibiotic and then follow up with her primary care in 1 week. Final diagnosis: Acute respiratory failure with hypoxia community-acquired pneumonia, nasal fractures Status at Discharge Cognitive/behavioral status at discharge: Alert oriented x1 Functional status at discharge: wheelchair bound Overall status at discharge: patient is progressing back to baseline Time Spent with Patient Time attestation: Total time spent providing and/or coordinating discharge services: Time spent: Greater than 30 minutes Exam Narrative: General: In no acute distress, well nourished Cardiac: Normal S1 and S2. No murmur, gallops or friction rubs, peripheral pulses intact. Respiratory: Lungs clear, currently on room air, nonproductive cough Gastrointestinal: soft, non-distended, non-tender, normoactive bowel sounds. : silverio discontinued, voiding Neuro: Alert and confused at baseline DS: Data Data Completed and Pending Completed studies during hospitalization: Chest x-ray Pelvis x-ray Head CT Head/cervical spine/facial bone CT Pending studies at discharge: Blood cultures Labs on day of discharge: Labs from last 24 hours 11/02/23 05:22 WBC 9.4 RBC 4.40 Hgb 12.6 Hct 38.8 MCV 88.2 MCH 28.6 MCHC 32.5 RDW 14.0 Plt Count 267 MPV 12.7 H Immature Gran % (Auto) 1.0 H Neut % (Auto) 70.4 Lymph % (Auto) 19.6 Will % (Auto) 8.7 H Eos % (Auto) 0.0 Baso % (Auto) 0.3 Lymph # (Auto) 1.84 Will # (Auto) 0.8 H Eos # (Auto) 0.0 Baso # (Auto) 0.0 Abs Immat G
[2023-11-02] MEDS: PANTOPRAZOLE 40 MG TABLET PO (09:30)
[2023-11-02] MEDS: THERAPEUTIC MULTIVITAMINS/MINERALS TAB (*BKC) 1 TABLET PO (09:30)
[2023-11-02] MEDS: oxyBUTYnin CHLORIDE 5 MG TABLET PO (09:30)
[2023-11-02] MEDS: CALCIUM/VITAMIN D 500 MG/5 MCG (200 I.U.) TABLET PO (09:30)
[2023-11-02] MEDS: ASPIRIN 81 MG ENTERIC TABLET PO (09:30)
[2023-11-02] MEDS: QUEtiapine FUMARATE 25 MG TABLET 75 MG PO (09:30)
[2023-11-02] MEDS: QUEtiapine FUMARATE 25 MG TABLET 50 MG PO (12:31)
[2023-11-02 14:40] VITALS: BP 130/54; PULSE 71; RESP 12; TEMP 35.9; O2SAT 91
--- NOTE | 2023-11-02 15:00 | PC.NURSE ---
On 11/02/23, the student, [Bethany Anne], provided care and completed [facility] documentation on this patient. I have reviewed the student's documentation and agree with the findings.
[2023-11-04 17:50] LABS: Pneumococcal Antigen Urine NOT DETECTED
[2023-11-04 19:23] LABS: Mycoplasma IgM Antibody Titer 1572 U/mL
[2023-11-06 22:27] LABS: Legionella pneumophila Ag Ur NOT DETECTED
== END 2023-11-02 18:05 | DRG 193 ==
LOC: ANHED 09:13 → ANH2MED 13:12
PROVIDERS: Physician Assistant; Admitting Provider Internal Medicine; Emergency Provider Student in an Organized Health Care Education/Training Program; PCP Internal Medicine; Visit Provider Nurse Practitioner Acute Care
DX: J18.9 Pneumonia, unspecified organism (principal); J96.01 Acute respiratory failure with hypoxia; S02.2XXA Fracture of nasal bones, initial encounter for closed fracture; W07.XXXA Fall from chair, initial encounter; E78.5 Hyperlipidemia, unspecified; E21.3 Hyperparathyroidism, unspecified; F03.90 Unspecified dementia, unspecified severity, without behavioral disturbance, psychotic disturbance, mood disturbance, and anxiety; F20.9 Schizophrenia, unspecified; F31.9 Bipolar disorder, unspecified; K21.9 Gastro-esophageal reflux disease without esophagitis; M16.12 Unilateral primary osteoarthritis, left hip; M47.816 Spondylosis without myelopathy or radiculopathy, lumbar region; M47.812 Spondylosis without myelopathy or radiculopathy, cervical region; R33.9 Retention of urine, unspecified; R73.9 Hyperglycemia, unspecified; Z74.01 Bed confinement status; Z20.822 Contact with and (suspected) exposure to COVID-19; Z66 Do not resuscitate; Z79.82 Long term (current) use of aspirin; Z96.641 Presence of right artificial hip joint
CPT/HCPCS: 36415; 70450; 70486; 71045; 72125; 72170; 80048; 80053; 81001; 83036; 83605; 83735; 84145; 85025; 85027; 85610; 85730; 86140; 86738; 86850; 86900; 86901; 87040; 87449; 87637; 87641; 87899; 96361; 96365; 96367; 96375; 97165; 99285; A9270; J0696; J2270; J7120

== ENCOUNTER 2024-02-09 06:32 | Emergency (ER) | payer MEDICARE, MEDICAID, SELFPAY ==
--- NOTE | ~2024-02-09 | XR_ITS ---
Portable chest x-ray Comparison: 10/30/2023 Clinical History: Shortness of breath Findings: There is hazy left basilar airspace disease. Possible minimal central congestive change. Cardiomediastinal silhouette is stable. Bones and soft tissues are unremarkable. Impression: Left basilar pulmonary edema versus pneumonia. Mild central congestive change. Reviewed, dictated and finalized at [facility]. DISPATCHER Impression: Left basilar pulmonary edema versus pneumonia. Mild central congestive change.
[2024-02-09 06:34] VITALS: BP 114/65; PULSE 81; RESP 21; TEMP 36.2; O2SAT 96
--- NOTE | 2024-02-09 06:38 | ECG_ITS ---
Test Date: 2024-02-09 06:40:34 Measurements Intervals [place] Rate: 77 P: 53 OH: 156 QRS: 23 QRSD: 125 T: 80 QT: 399 QTc: 454 Interpretive Statements SINUS RHYTHM LEFT BUNDLE BRANCH BLOCK [120+ ms QRS DURATION, 80+ ms Q/S IN V1/V2, 85+ ms R IN I/aVL/V5/V6] No previous ECG available for comparison Electronically Signed On 02-09-2024 14:40:36 [employer] by Aruna Devine M.D.
[2024-02-09 06:51] LABS: Basophils Percent Auto 0.2 % (0.2-1.2); Hematocrit 38.5 % (37.0-47.0); Hemoglobin 12.6 g/dL (12.0-15.0); Immature Granulocyte Absolute 0.04 K/mm3 (0.00-0.031); Immature Granulocyte Percent A 0.4 % (0-0.5); Lymphocytes Absolute Auto 1.96 K/mm3 (0.9-3.2); Lymphocytes Percent Auto 21.9 % (18.3-44.2); Mean Corpuscular HGB Conc 32.7 g/dl (32-36); Mean Corpuscular Hemoglobin 28.6 pg (26-34); Mean Corpuscular Volume 87.3 fl (80-100); Mean Platelet Volume 12.1 fl (7.4-10.4); Monocytes Absolute Auto 0.8 K/mm3 (0.1-0.6); Monocytes Percent Auto 8.5 % (2.6-8.5); Neutrophils Absolute Auto 6.2 K/mm3 (1.3-6.7); Platelet Count Result 224 k/mm3 (150-375); Red Blood Count 4.41 M/mm3 (4.2-5.4); Red Cell Distribution Width 14.8 % (11.5-14.5); White Blood Count 8.9 K/mm3 (4.5-10.0)
[2024-02-09 06:55] VITALS: O2SAT 96
[2024-02-09 07:01] LABS: Alanine Aminotransferase 13 U/L (6-35); Albumin Level 3.3 g/dL (3.5-5.1); Alkaline Phosphatase 134 U/L (38-126); Anion Gap -1 mmol/L (4-12); Aspartate Amino Transferase 25 U/L (14-36); Bilirubin,Total 0.5 mg/dL (0.2-1.3); Blood Urea Nitrogen 11 mg/dL (7-17); Calcium 10.2 mg/dL (8.4-10.2); Carbon Dioxide 31 mmol/L (22-30); Chloride 108 mmol/L (98-107); Estimated CRCL calculation 41 ml/min; Estimated Glomerular Filt Rate > 60; Glucose 91 mg/dL (65-110); Potassium 4.4 mmol/L (3.4-5.0); Sodium 138 mmol/L (137-145)
[2024-02-09 07:21] VITALS: PULSE 73
[2024-02-09 07:22] VITALS: BP 125/58; PULSE 73; RESP 20; O2SAT 97
--- NOTE | 2024-02-09 07:46 | ED.SOB ---
HPI - SOB/Dyspnea General Chief Complaint: Shortness of Breath/Dyspnea Stated Complaint: SOB Time Seen by Provider: 02/09/24 07:05 Source: EMS Mode of arrival: EMS Limitations: clinical condition History of Present Illness HPI Narrative: 88-year-old with a history of cognitive communication deficit, schizoaffective disorder hyperlipidemia, GERD was sent from care home for shortness of breath as per the care home records patient was found to be short of breath. No history of fever or cough. Onset (ago): day(s) (1) Exacerbating factors: nothing Treatment prior to arrival: none Related Data Home oxygen amount: none Home Medications ?Medication ?Instructions ?Recorded ?Confirmed ?Last Taken ?Type acetaminophen 500 mg tablet 1,000 mg PO Q4H PRN Pain 10/30/23 10/30/23 Unknown History aluminum-mag hydroxide-simethicone 30 ml PO Q6H PRN Indigestion 10/30/23 10/30/23 Unknown History 400 mg-400 mg-40 mg/5 mL oral susp (Mylanta Maximum Strength) aspirin 81 mg tablet,delayed 81 mg PO DAILY 10/30/23 10/30/23 10/29/23 History release calcium 600 mg (as carbonate)-vit 1 tablet PO DAILY 10/30/23 10/30/23 10/29/23 History D3 10 mcg (400 unit) chewable tablet (Calcium 600 with Vitamin D3) clozapine 100 mg tablet 100 mg PO BID 10/30/23 10/30/23 10/29/23 History clozapine 25 mg tablet 25 mg PO DAILY 10/30/23 10/30/23 10/29/23 History clozapine 50 mg tablet 50 mg PO DAILY 10/30/23 10/30/23 10/29/23 History dextromethorphan-guaifenesin 5 See Rx Instructions .Route .COMPLEX 10/30/23 10/30/23 Unknown History mg-100 mg/5 mL oral liquid (Robitussin Cough-Chest Congestion DM) docusate sodium 100 mg capsule 100 mg PO HS 10/30/23 10/30/23 10/29/23 History escitalopram oxalate 10 mg tablet 10 mg PO HS 10/30/23 10/30/23 10/29/23 History fluticasone propionate 50 2 spray intranasal HS 10/30/23 10/30/23 10/29/23 History mcg/actuation nasal spray,suspension hydrocortisone 1 % topical cream 1 applic topical Q12H PRN Itching 10/30/23 10/30/23 Unknown History linaclotide 145 mcg capsule 145 mcg PO DAILY 10/30/23 10/30/23 10/29/23 History (Linzess) loperamide 2 mg capsule 2 mg PO Q6H PRN Diarrhea 10/30/23 10/30/23 Unknown History magnesium hydroxide 400 mg/5 mL 30 ml PO PRN PRN Constipation 10/30/23 10/30/23 Unknown History oral suspension (Milk of Magnesia) multivitamin with iron 1 tablet PO DAILY 10/30/23 10/30/23 10/29/23 History oxybutynin chloride 5 mg tablet 5 mg PO DAILY 10/30/23 10/30/23 10/29/23 History pantoprazole 40 mg tablet,delayed 40 mg PO DAILY 10/30/23 10/30/23 10/29/23 History release polyethylene glycol 3350 17 gram 17 g PO DAILY PRN Constipation 10/30/23 10/30/23 Unknown History oral powder packet (Miralax) Allergies Allergy/AdvReac Type Severity Reaction Status Date / Time Penicillins Allergy Hives Verified 10/23/23 10:03 Review of Systems Review of Systems: ROS unobtainable: Yes unobtainable due to mental status PMFSH Past Medical History Medical History Gastroesophageal reflux disease Hyperparathyroidism Hyperlipidemia Bipolar disorder Schizoaffective disorder Surgical History Surgical History History of cataract extraction with lens replacement History of total right hip arthroplasty Family History Family History Other Family history unknown Social History Social History Social History: Surrogate medical decision maker: Leighann Villeda. Code status: Do not resuscitate. Smoking status: Unknown if ever smoked Additional living arrangements comments: Patient resides at [facility], [place]. Spiritual care concerns: No Exam Narrative: GENERAL: Well-appearing, , and in no acute distress.Mumbling HEAD: Normocephalic, atraumatic. EYES: PERRLA and EOMI. ENT: Nares clear, no rhinorrhea or epistaxis. Mucous membranes moist. NECK: Supple. CHEST: Clear to auscultation. No respiratory distress. HEART: Regular rate and rhythm. No murmur heard. Normal peripheral pulses. ABDOMEN: Soft, nontender, nondistended, normal active bowel sounds. EXTREMITIES: Normal range of motion. No edema. SKIN: Warm, dry, no rash. NEURO: No focal deficits. Alert PSYCH: Normal mood and affect. Course Course Emergency Course: Patient comfortably resting in no discomfort her SpO2 was 97% on room air. Lungs were clear Vital Signs Vital signs: Vital Signs Temperature 36.2 C L 02/09/24 06:34 Pulse Rate 81 02/09/24 06:34 Respiratory Rate 21 H 02/09/24 06:34 Blood Pressure 114/65 02/09/24 06:34 Pulse Oximetry 96 02/09/24 06:34 Oxygen Delivery Room Air 02/09/24 06:34 Temperature 36.2 C L 02/09/24 06:34 Pulse Rate 73 02/09/24 07:22 Respiratory Rate 20 02/09/24 07:22 Blood Pressure 125/58 L 02/09/24 07:22 Pulse Oximetry 97 02/09/24 07:22 Oxygen Delivery Autopap 02/09/24 06:55 MDM - SOB/Dyspnea Differential Diagnosis Differential diagnosis: Likely acute exacerbation of chronic obstructive airways disease, congestive heart failure and community acquired pneumonia Medical Records Attestation: I reviewed the patient's medical records. Lab Data 02/09/24 06:42 02/09/24 06:42 Labs: Lab Results 02/09/24 Range/Units 06:42 WBC 8.9 (4.5-10.0) K/mm3 RBC 4.41 (4.2-5.4) M/mm3 Hgb 12.6 (12.0-15.0) g/dL Hct 38.5 (37.0-47.0) % MCV 87.3 (80-100) fl MCH 28.6 (26-34) pg MCHC 32.7 (32-36) g/dl RDW 14.8 H (11.5-14.5) % Plt Count 224 (150-375) k/mm3 MPV 12.1 H (7.4-10.4) fl Immature Gran % (Auto) 0.4 (0-0.5) % Neut % (Auto) 69.0 (45.5-73.1) % Lymph % (Auto) 21.9 (18.3-44.2) % Jennings % (Auto) 8.5 (2.6-8.5) % Eos % (Auto) 0.0 (0-4.4) % Baso % (Auto) 0.2 (0.2-1.2) % Lymph # (Auto) 1.96 (0.9-3.2) K/mm3 Jennings # (Auto) 0.8 H (0.1-0.6) K/mm3 Eos # (Auto) 0.0 (0-0.3) K/mm3 Baso # (Auto) 0.0 (0.0-0.1) K/mm3 Abs Immat Gran (auto) 0.04 H (0.00-0.031) K/mm3 Absolute Neuts (auto) 6.2 (1.3-6.7) K/mm3 Absolute Nucleated RBC 0.000 (0.0-0.012) K/mm3 Nucleated RBC % 0.0 (0.0-0.2) % Sodium 138 (137-145) mmol/L Potassium 4.4 (3.4-5.0) mmol/L Chloride 108 H (98-107) mmol/L Carbon Dioxide 31 H (22-30) mmol/L Anion Gap -1 L (4-12) mmol/L BUN 11 (7-17) mg/dL Creatinine 0.80 (0.7-1.0) mg/dL Estim Creat Clear Calc 41 ml/min Estimated GFR > 60 (59 - ) Glucose 91 (65-110) mg/dL Calcium 10.2 (8.4-10.2) mg/dL Total Bilirubin 0.5 (0.2-1.3) mg/dL AST 25 (14-36) U/L ALT 13 (6-35) U/L Alkaline Phosphatase 134 H (38-126) U/L Total Protein 6.0 L (6.3-8.2) g/dL Albumin 3.3 L (3.5-5.1) g/dL Imaging Data Radiologist's impression: ITS Impressions Chest X-Ray 02/09/24 07:12 Impression: Left basilar pulmonary edema versus pneumonia. Mild central congestive change. ECG Data EKG #1: ECG completion date: 02/09/24 ECG completion time: 06:40 EKG Interpretation: normal rate (77) and LBBB Discharge Plan Discharge Clinical Impression: Shortness of breath Patient Disposition: NH Half-Way/Asst Living Condition: Stable Instructions: Shortness of Breath (ED) Additional Instructions: Continue home medications, follow with your doctor. Patient Language: Belarusian Prescriptions: No Action clozapine 100 mg tablet 100 mg PO BID aspirin 81 mg Tablet,Delayed Release (Dr/Ec) 81 mg PO DAILY acetaminophen 500 mg Tablet 1,000 mg PO Q4H PRN (Reason: Pain) hydrocortisone 1 % cream 1 applic topical Q12H PRN (Reason: Itching) Rx Instructions: Apply to affected area. docusate sodium 100 mg Capsule 100 mg PO HS clozapine 25 mg tablet 25 mg PO DAILY Rx Instructions: Give with 50mg at noon to equal 75mg. fluticasone propionate 50 mcg/actuation spray,suspension 2 spray INTRANASAL HS escitalopram oxalate 10 mg tablet 10 mg PO HS clozapine 50 mg tablet 50 mg PO DAILY Rx Instructions: Give with 25mg at noon to equal 75mg. Calcium 600 with Vitamin D3 600 mg-10 mcg (400 unit) Tablet,Chewable 1 tablet PO DAILY Linzess 145 mcg capsule 145 mcg PO DAILY loperamide 2 mg capsule 2 mg PO Q6H PRN (Reason: Diarrhea) polyethylene glycol 3350 [Miralax] 17 gram Powder In Packet 17 g PO DAILY PRN (Reason: Constipation) magnesium hydroxide [Milk of Magnesia] 400 mg/5 mL Suspension 30 ml PO PRN PRN (Reason: Constipation) pantoprazole 40 mg tablet,delayed release (DR/EC) 40 mg PO DAILY dextromethorphan-guaifenesin [Robitussin Cough-Chest Isaías DM] 5-100 mg/5 mL Liquid See Rx Instructions .ROUTE .COMPLEX Rx Instructions: Take 2 teaspoons PO every 4hrs. PRN oxybutynin chloride 5 mg tablet 5 mg PO DAILY alum-mag hydroxide-simeth [Mylanta Maximum Strength] 400-400-40 mg/5 mL Suspension 30 ml PO Q6H PRN (Reason: Indigestion) multivitamin with iron Tablet 1 tablet PO DAILY levofloxacin 750 mg tablet 750 mg PO Q48H 6 Days Qty: 3 0RF Rx Instructions: Needs to start on 11/03/23 Follow-up/Referrals: Kami,MD Sae [Primary Care Provider] - Time of Disposition: 07:54
[2024-02-09 08:00] VITALS: BP 127/60; PULSE 83; RESP 20; O2SAT 98
[2024-02-09 08:02] VITALS: BP 127/60; PULSE 83; RESP 20; O2SAT 98
== END 2024-02-09 09:58 ==
PROVIDERS: Emergency Medicine; Emergency Provider Family Medicine; PCP Internal Medicine
DX: R06.02 Shortness of breath (principal); E78.5 Hyperlipidemia, unspecified; K21.9 Gastro-esophageal reflux disease without esophagitis; F25.9 Schizoaffective disorder, unspecified; F31.9 Bipolar disorder, unspecified; R41.841 Cognitive communication deficit; Z96.1 Presence of intraocular lens; Z98.49 Cataract extraction status, unspecified eye; Z96.641 Presence of right artificial hip joint; R91.8 Other nonspecific abnormal finding of lung field
CPT/HCPCS: 36415; 71045; 80053; 85025; 93005; 99284

== ENCOUNTER 2024-02-18 02:33 | Emergency (ER) | payer MEDICARE, MEDICAID, SELFPAY ==
[2024-02-18] VITALS (7 sets, daily range): BP systolic 117–149; BP diastolic 63–94; PULSE 79–106; RESP 14–30; TEMP 36.4–36.6; O2SAT 94–99
--- NOTE | ~2024-02-18 | CT_ITS ---
EXAMINATION: CT brain wo con DATE: 02/18/2024 07:07 INDICATION: Head injury. Ground-level fall. TECHNIQUE: Computed tomography (CT) of the head was performed without intravenous contrast. The mA wa s adjusted according to patient size. Iterative reconstruction technique was employed. The dose-lengt h product was 1513.33 mGy-cm. COMPARISON: Head CT 10/30/23 FINDINGS: There is no intracranial hemorrhage, acute infarction, or abnormal intracranial mass lesion . The ventricles are normal in size. There are likely changes of ocular lens replacement surgeries. T here is mucosal thickening in the paranasal sinuses. There is thickening and sclerosis of the venegas o f left maxillary sinus. The mastoid air cells are normal. IMPRESSION: 1. Normal brain. 2. Chronic sinusitis. Reviewed, dictated and finalized at location A. INTERN
--- NOTE | ~2024-02-18 | CT_ITS ---
EXAMINATION: CT cervical spine wo con DATE: 02/18/2024 07:07 INDICATION: Neck injury. Ground-level fall. TECHNIQUE: Computed tomography (CT) of the cervical spine was performed without intravenous contrast. Automated exposure control and iterative reconstruction technique were employed. The dose-length pro duct was 247.63 mGy-cm. COMPARISON: CT cervical spine 10/30/2023 FINDINGS: There is cerumen in the external auditory canals. There is 2 mm anterolisthesis of C2 on C3 and 3 mm anterolisthesis of C3 on C4. There is mild chronic anterior wedging of C7 and T1 vertebral bodies. There is kyphosis of cervical spine. There is 3 degrees dextrocurvature of cervicothoracic sp ine. There is severely decreased disc height at C3-C4, C4-C5, C5-C6, and C6-C7 and mildly decreased d isc height at C7-T1. The following disc levels are specifically discussed: C2-C3: There is mild right and moderate left uncovertebral joint osteoarthritis. There is mild right and severe left facet joint osteoarthritis. There is mild left neural foraminal stenosis. There is mi ld central canal stenosis. C3-C4: There is severe right and moderate left uncovertebral joint osteoarthritis. There is severe bi lateral facet joint osteoarthritis. There is mild bilateral neural foraminal stenosis. There is mild central canal stenosis. C4-C5: There is severe bilateral uncovertebral joint osteoarthritis. There is moderate right and giorgio re left facet joint osteoarthritis. There is mild bilateral neural foraminal stenosis. There is mild central canal stenosis. C5-C6: There is severe bilateral uncovertebral joint osteoarthritis. There is moderate bilateral face t joint osteoarthritis. There is moderate bilateral neural foraminal stenosis. There is mild central canal stenosis. C6-C7: There is severe bilateral uncovertebral joint osteoarthritis. There is moderate right and mild left facet joint osteoarthritis. There is mild bilateral neural foraminal stenosis. There is mild ce ntral canal stenosis. C7-T1: There is no uncovertebral joint osteoarthritis. There is severe bilateral facet joint osteoart hritis. There is mild bilateral neural foraminal stenosis. There is no central canal stenosis. IMPRESSION: 1. No fracture. 2. Severe cervical spondylosis. Reviewed, dictated and finalized at location A. NSED PHYSICAL THERAPY ASSISTANT
--- NOTE | 2024-02-18 07:18 | ED_ITS ---
HPI - General Adult General Chief complaint: Fall Stated complaint: ROLLED OUT OF LOW BED Time Seen by Provider: 02/18/24 06:56 History of Present Illness HPI narrative: 78-year-old female presenting to the emergency department for evaluation after having a fall. Patient was found on the ground with her head and body on the ground but leg still in the bed. Patient does have a history of schizoaffective disorder, mood disorder, bipolar, mental retardation. Patient denies any complaints at time of evaluation. Related Data Home Medications ?Medication ?Instructions ?Recorded ?Confirmed ?Last Taken ?Type acetaminophen 500 mg tablet 1,000 mg PO Q4H PRN Pain 10/30/23 10/30/23 Unknown History aluminum-mag hydroxide-simethicone 30 ml PO Q6H PRN Indigestion 10/30/23 10/30/23 Unknown History 400 mg-400 mg-40 mg/5 mL oral susp (Mylanta Maximum Strength) aspirin 81 mg tablet,delayed 81 mg PO DAILY 10/30/23 10/30/23 10/29/23 History release calcium 600 mg (as carbonate)-vit 1 tablet PO DAILY 10/30/23 10/30/23 10/29/23 History D3 10 mcg (400 unit) chewable tablet (Calcium 600 with Vitamin D3) clozapine 100 mg tablet 100 mg PO BID 10/30/23 10/30/23 10/29/23 History clozapine 25 mg tablet 25 mg PO DAILY 10/30/23 10/30/23 10/29/23 History clozapine 50 mg tablet 50 mg PO DAILY 10/30/23 10/30/23 10/29/23 History dextromethorphan-guaifenesin 5 See Rx Instructions .Route .COMPLEX 10/30/23 10/30/23 Unknown History mg-100 mg/5 mL oral liquid (Robitussin Cough-Chest Congestion DM) docusate sodium 100 mg capsule 100 mg PO HS 10/30/23 10/30/23 10/29/23 History escitalopram oxalate 10 mg tablet 10 mg PO HS 10/30/23 10/30/23 10/29/23 History fluticasone propionate 50 2 spray intranasal HS 10/30/23 10/30/23 10/29/23 History mcg/actuation nasal spray,suspension hydrocortisone 1 % topical cream 1 applic topical Q12H PRN Itching 10/30/23 10/30/23 Unknown History linaclotide 145 mcg capsule 145 mcg PO DAILY 10/30/23 10/30/23 10/29/23 History (Linzess) loperamide 2 mg capsule 2 mg PO Q6H PRN Diarrhea 10/30/23 10/30/23 Unknown History magnesium hydroxide 400 mg/5 mL 30 ml PO PRN PRN Constipation 10/30/23 10/30/23 Unknown History oral suspension (Milk of Magnesia) multivitamin with iron 1 tablet PO DAILY 10/30/23 10/30/23 10/29/23 History oxybutynin chloride 5 mg tablet 5 mg PO DAILY 10/30/23 10/30/23 10/29/23 History pantoprazole 40 mg tablet,delayed 40 mg PO DAILY 10/30/23 10/30/23 10/29/23 History release polyethylene glycol 3350 17 gram 17 g PO DAILY PRN Constipation 10/30/2310/29 Unknown History oral powder packet (Miralax) Allergies Allergy/AdvReac Type Severity Reaction Status Date / Time Penicillins Allergy Hives Verified 10/23/23 10:03 Review of Systems Review of Systems: All systems reviewed & are unremarkable except as noted in HPI and below PMFSH Past Medical History Medical History Gastroesophageal reflux disease Hyperparathyroidism Hyperlipidemia Bipolar disorder Schizoaffective disorder Surgical History Surgical History History of cataract extraction with lens replacement History of total right hip arthroplasty Family History Family History Other Family history unknown Social History Social History Social History: Surrogate medical decision maker: Leighann Villeda. Code status: Do not resuscitate. Smoking status: Unknown if ever smoked Additional living arrangements comments: Patient resides at [facility]. Spiritual care concerns: No Exam Narrative: APPEARANCE: Agitated HEAD: normocephalic, atraumatic. EYES: PERRLA/EOMI, conjunctivae clear. NOSE: Normal no drainage EARS:TMS clear with good light reflex. THROAT: Pharynx clear, no exudate. NECK: Supple. No adenopathy, no masses. RESPIRATORY: Airway patent, respirations nonlabored. Clear to auscultation bilaterally, no rales, rhonchi, wheezing. CARDIOVASCULAR: Regular rate and rhythm without murmurs rubs or gallops. ABDOMINAL: Soft, nontender, nondistended, normal bowel sounds MUSCULOSKELETAL: Moves all extremities. Strength/ROM intact, No edema, No calf tenderness. NEURO: Alert. Cranial nerves II through XII intact. Good gait. Good coordination SKIN: Warm, dry. Normal Color Course Vital Signs Vital signs: Vital Signs Temperature 97.5 F L 02/18/24 02:33 Pulse Rate 106 H 02/18/24 02:33 Respiratory Rate 20 02/18/24 02:33 Blood Pressure 131/94 H 02/18/24 02:33 Pulse Oximetry 94 02/18/24 02:33 Oxygen Delivery Room Air 02/18/24 02:33 Temperature 97.6 F 02/18/24 08:00 Pulse Rate 82 02/18/24 08:00 Respiratory Rate 18 02/18/24 08:00 Blood Pressure 132/80 02/18/24 08:00 Pulse Oximetry 99 02/18/24 08:00 Oxygen Delivery Room Air 02/18/24 02:33 Medical Decision Making MDM Narrative Medical decision making narrative: 78-year-old female present to the emergency department for evaluation after having a fall from bed. Patient denies any pain or complaint. Patient is agitated reportedly because she does not have her comfort dolls. Patient is a x1 at her baseline. Patient denies any pain or complaint and patient is well- appearing. Patient was discharged back to her care facility after negative imaging. CT head cervical spine showed no acute abnormalities. Differential Diagnosis Differential Diagnosis: Cervical spine fracture, subdural hematoma, subarachnoid hemorrhage Vital Signs Vital Signs: Vital Signs Temperature 97.5 F L 02/18/24 02:33 Pulse Rate 106 H 02/18/24 02:33 Respiratory Rate 20 02/18/24 02:33 Blood Pressure 131/94 H 02/18/24 02:33 Pulse Oximetry 94 02/18/24 02:33 Oxygen Delivery Room Air 02/18/24 02:33 Temperature 97.6 F 02/18/24 08:00 Pulse Rate 82 02/18/24 08:00 Respiratory Rate 18 02/18/24 08:00 Blood Pressure 132/80 02/18/24 08:00 Pulse Oximetry 99 02/18/24 08:00 Oxygen Delivery Room Air 02/18/24 02:33 Imaging Data Radiologist's impression: Impressions Head CT 02/18/24 07:07 IMPRESSION: 1. Normal brain. 2. Chronic sinusitis. Cervical Spine CT 02/18/24 07:13 IMPRESSION: 1. No fracture. 2. Severe cervical spondylosis. Discharge Plan Discharge Clinical Impression: Head injury Patient Disposition: Home, Self-Care Condition: Stable Instructions: Antibiotic Form Additional Instructions: have close follow-up with your primary care physician. if you have any worsening symptoms then please call or return to the emergency department. Patient Language: Turkish Prescriptions: No Action clozapine 100 mg tablet 100 mg PO BID aspirin 81 mg Tablet,Delayed Release (Dr/Ec) 81 mg PO DAILY acetaminophen 500 mg Tablet 1,000 mg PO Q4H PRN (Reason: Pain) hydrocortisone 1 % cream 1 applic topical Q12H PRN (Reason: Itching) Rx Instructions: Apply to affected area. docusate sodium 100 mg Capsule 100 mg PO HS clozapine 25 mg tablet 25 mg PO DAILY Rx Instructions: Give with 50mg at noon to equal 75mg. fluticasone propionate 50 mcg/actuation spray,suspension 2 spray INTRANASAL HS escitalopram oxalate 10 mg tablet 10 mg PO HS clozapine 50 mg tablet 50 mg PO DAILY Rx Instructions: Give with 25mg at noon to equal 75mg. Calcium 600 with Vitamin D3 600 mg-10 mcg (400 unit) Tablet,Chewable 1 tablet PO DAILY Linzess 145 mcg capsule 145 mcg PO DAILY loperamide 2 mg capsule 2 mg PO Q6H PRN (Reason: Diarrhea) polyethylene glycol 3350 [Miralax] 17 gram Powder In Packet 17 g PO DAILY PRN (Reason: Constipation) magnesium hydroxide [Milk of Magnesia] 400 mg/5 mL Suspension 30 ml PO PRN PRN (Reason: Constipation) pantoprazole 40 mg tablet,delayed release (DR/EC) 40 mg PO DAILY dextromethorphan-guaifenesin [Robitussin Cough-Chest Isaías DM] 5-100 mg/5 mL Liquid See Rx Instructions .ROUTE .COMPLEX Rx Instructions: Take 2 teaspoons PO every 4hrs. PRN oxybutynin chloride 5 mg tablet 5 mg PO DAILY alum-mag hydroxide-simeth [Mylanta Maximum Strength] 400-400-40 mg/5 mL Suspension 30 ml PO Q6H PRN (Reason: Indigestion) multivitamin with iron Tablet 1 tablet PO DAILY levofloxacin 750 mg tablet 750 mg PO Q48H 6 Days Qty: 3 0RF Rx Instructions: Needs to start on 11/03/23 Follow-up/Referrals: Kami,MD Sae [Primary Care Provider] -
== END 2024-02-18 08:36 | disposition home or self-care (01) ==
LOC: ANHED 07:26
PROVIDERS: Emergency Provider Emergency Medicine; PCP Internal Medicine
DX: S09.90XA Unspecified injury of head, initial encounter (principal); W19.XXXA Unspecified fall, initial encounter; F25.9 Schizoaffective disorder, unspecified; K21.9 Gastro-esophageal reflux disease without esophagitis; E78.5 Hyperlipidemia, unspecified; F31.9 Bipolar disorder, unspecified; Z96.641 Presence of right artificial hip joint
CPT/HCPCS: 70450; 72125; 99284

== ENCOUNTER 2025-02-16 06:36 | Inpatient (IN) | payer MEDICARE, MEDICAID, SELFPAY ==
--- OUTSIDE RECORDS SUMMARY | 2013-11-24 05:50 | XMS_ITS | Continuity of Care Document ---
Author Organization [facility] Address [address] [place] [address] Phone Care Team Providers Care Electronic Sales And Service Technician Name Role Phone Maurilio Au MD Unavailable Unavailable Allergies, Adverse Reactions, Alerts Substance Reaction Status Criticality Penicillins Active No Information Medications Medication Instructions Dosage Effective Dates (start - stop) Status Comments Pediaderm TA 0.1 % topical cream - Active clozapine 50 mg tablet - Active CALCIUM CARBONATE/VITAMIN D3 (unknown strength) Not Available - Active naproxen 500 mg tablet,delayed release - Active ranitidine 150 mg tablet - Active benztropine 2 mg tablet - Active Lexapro 20 mg tablet - Active fluticasone 50 mcg/actuation nasal spray,suspension - Active Lomotil 2.5 mg-0.025 mg tablet - Active ibuprofen 200 mg capsule - Active Procedures Procedure Date POSTOP FOLLOW-UP VISIT POSTOP FOLLOW-UP VISIT POSTOP FOLLOW-UP VISIT OFFICE/OUTPATIENT VISIT NEW Advance Directives Directive Yes / No Effective Date File Name No Information Encounters Encounter Description Practice Location Reason(s) For Visit Diagnoses Date Provider Providers Copied on Encounter [facility], [address], [address], [place] tel:[phone] [facility] Status post total knee replacement [address] R[address] Thorpe. [address] [place], [place], [id number] . tel: [phone] [facility], [address] [facility] [address], [address], [place] tel:[phone] [facility] Status post total knee replacement [address] R[address] Thorpe. [address] [facility] [place], [id number] . tel:[phone] [facility], [address], [address], tel:[phone] [facility] Osteoarthritis of right kneeStatus post total knee replacement [address] Maurilio. [address] [place], [place], [id number] . tel:[phone] Referring Provider: Johnson Crawford, RETIRED [address], [place], [address]. tel:[phone] OFFICE/OUTPA TIENT VISIT NEW [facility], [address] [address], [place], [address], tel:[phone] [facility] Osteoarthritis of right knee [address] Maurilio. [address] [place], [place], [id number] . tel:[phone] Referring Provider: Johnson Crawford, RETIRED [address], [place], [address]. tel:[phone] Family History Family Member Type Diagnosis Age At Onset No Information Payers Payer name Insurance type Covered democrat ID Authoriza tion(s) No Information Social History Type Description Quantity Date Captured Comments Sex Female Smoking Status No Information Chief Complaint And Reason For Visit No Information Reason For Referral Reason For Referral No Information Plan Of Treatment Date Type Action Status Referral Ordered: RADEX KNE 3 VIEWS RT ordered Referral Ordered: RADEX KNE 3 VIEWS RT knee ordered History Of Present Illness Encounter Date Complaint History Of Prese nt Illness No Information Functional Status Date Functional Assessmen t No Information Instructions Date Instruction Additional Infor dipika Continue ROM as tole rated. FU 3 months. Related to Status post total knee replacement Extensi nator brace to RLE. 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 . Related to Status post total knee replacement Discussed post-operative precaut ions Activity as tolerated Patient told to see PCP for: Medical clearance/ if decides to go for surgery ROM as tolerated See plan for specifi c education/instructions Assessments Type Assessment Date assessment Status post total knee replaceme nt Patient Care Teams Name Effective Dates (start - stop) Status Members No Information
[2025-02-16] VITALS (8 sets, daily range): BP systolic 90–126; BP diastolic 46–101; PULSE 84–112; RESP 16–22; TEMP 36.5–37.3; O2SAT 91–100
--- NOTE | ~2025-02-16 | CT_ITS ---
CT abdomen pelvis w con Clinical History: epigastric pain/vomiting . Comparison: None Technique: Axial images lung bases to symphysis pubis IV contrast information not listed in PACS Coronal, sagittal reformats CT images acquired with automatic exposure control for dose reduction DLP: 496 mGy-cm Findings: Lung bases: Scattered airspace disease right lung. Visualized heart and pericardium: Mild cardiomegaly. Liver: Unremarkable. Gallbladder: Contracted. Spleen: Small hypodense focus. Pancreas: Atrophy. Adrenal glands: Unremarkable. Kidneys: Right kidney- No hydronephrosis. No renal stones. Left kidney- No hydronephrosis. No renal stones. Distal esophagus/stomach: Unremarkable. Small bowel loops: Normal caliber and wall thickness. Colon: Normal caliber and wall thickness. Appendix not seen. Nodes: No enlarged nodes. Peritoneum: No ascites. No free air. Urinary bladder: Unremarkable. Uterus: Unremarkable. Adnexa: No masses. Bones: No acute bony abnormality. Soft tissues: Unremarkable. Aorta: No aneurysm or dissection. IVC: Unremarkable. Main portal vein/SMV/splenic vein: Patent. IMPRESSION: 1. Right lung airspace disease. 2. No acute abnormality within abdomen or pelvis. Reviewed, dictated and finalized at location R. BICS TEACHER
--- NOTE | ~2025-02-16 | XR_ITS ---
Examination: XR chest 2V Clinical History: cough Comparison: 02/09/2024 Technique: PA and Lateral Findings: Cardiomegaly. Large airspace disease right lung. No acute bony abnormality. IMPRESSION: 1. Large airspace disease right lung. Reviewed, dictated and finalized at location R. H TECHNICIAN
--- NOTE | 2025-02-16 07:33 | ED.GENADULT ---
HPI - General Adult General Chief complaint: Weakness Stated complaint: N/V, abd pain - dark emesis Time Seen by Provider: 02/16/25 07:03 History of Present Illness HPI narrative: Patient is an 79-year-old female with cognitive communication deficit and schizoaffective disorder who presents ER after having an episode of emesis. Patient cooperates with exam and attempts to make jokes by saying do but otherwise cannot communicate with me. She is in no distress. Apparently her emesis is dark in color. No reports of active bleeding. Patient does have a cough here and a borderline oxygen saturation. Related Data Home Medications ?Medication ?Instructions ?Recorded ?Confirmed ?Last Taken ?Type acetaminophen 500 mg tablet 1,000 mg PO Q4H PRN Pain 10/30/23 10/30/23 Unknown History aluminum-mag hydroxide-simethicone 30 ml PO Q6H PRN Indigestion 10/30/23 10/30/23 Unknown History 400 mg-400 mg-40 mg/5 mL oral susp (Mylanta Maximum Strength) aspirin 81 mg tablet,delayed 81 mg PO DAILY 10/30/23 10/30/23 10/29/23 History release calcium 600 mg (as carbonate)-vit 1 tablet PO DAILY 10/30/23 10/30/23 10/29/23 History D3 10 mcg (400 unit) chewable tablet (Calcium 600 with Vitamin D3) clozapine 100 mg tablet 100 mg PO BID 10/30/23 10/30/23 10/29/23 History clozapine 25 mg tablet 25 mg PO DAILY 10/30/23 10/30/23 10/29/23 History clozapine 50 mg tablet 50 mg PO DAILY 10/30/23 10/30/23 10/29/23 History dextromethorphan-guaifenesin 5 See Rx Instructions .Route .COMPLEX 10/30/23 10/30/23 Unknown History mg-100 mg/5 mL oral liquid (Robitussin Cough-Chest Congestion DM) docusate sodium 100 mg capsule 100 mg PO HS 10/30/23 10/30/23 10/29/23 History escitalopram oxalate 10 mg tablet 10 mg PO HS 10/30/23 10/30/23 10/29/23 History fluticasone propionate 50 2 spray intranasal HS 10/30/23 10/30/23 10/29/23 History mcg/actuation nasal spray,suspension hydrocortisone 1 % topical cream 1 applic topical Q12H PRN Itching 10/30/23 10/30/23 Unknown History linaclotide 145 mcg capsule 145 mcg PO DAILY 10/30/23 10/30/23 10/29/23 History (Linzess) loperamide 2 mg capsule 2 mg PO Q6H PRN Diarrhea 10/30/23 10/30/23 Unknown History magnesium hydroxide 400 mg/5 mL 30 ml PO PRN PRN Constipation 10/30/23 10/30/23 Unknown History oral suspension (Milk of Magnesia) multivitamin with iron 1 tablet PO DAILY 10/30/23 10/30/23 10/29/23 History oxybutynin chloride 5 mg tablet 5 mg PO DAILY 10/30/23 10/30/23 10/29/23 History pantoprazole 40 mg tablet,delayed 40 mg PO DAILY 10/30/23 10/30/23 10/29/23 History release polyethylene glycol 3350 17 gram 17 g PO DAILY PRN Constipation 10/30/23 10/30/23 Unknown History oral powder packet (Miralax) Allergies Allergy/AdvReac Type Severity Reaction Status Date / Time Penicillins Allergy Hives Verified 10/23/23 10:03 Review of Systems Review of Systems: ROS unobtainable: Yes unobtainable due to mental status PMFSH Past Medical History Medical History (Updated 02/16/25 @ 09:19 by Travis Colindres MD) Cognitive communication deficit Gastroesophageal reflux disease Hyperparathyroidism Hyperlipidemia Bipolar disorder Schizoaffective disorder Surgical History Surgical History History of cataract extraction with lens replacement History of total right hip arthroplasty Family History Family History Other Family history unknown Social History Social History Social History: Surrogate medical decision maker: Leighann Villeda. Code status: Do not resuscitate. Smoking status: Unknown if ever smoked Additional living arrangements comments: Patient resides at [facility]. Spiritual care concerns: No Exam Narrative: GENERAL: Well-appearing, well-nourished, and in no acute distress. HEAD: Normocephalic, atraumatic. EYES: PERRL and EOMI. ENT: Mucous membranes moist. CHEST: Mild rales right posterior lung field. No respiratory distress. HEART: Regular rate and rhythm. Normal peripheral pulses. ABDOMEN: Soft, mild epigastric tenderness,, nondistended. EXTREMITIES: Normal range of motion. No edema. SKIN: Warm, dry, no rash. NEURO: Awake alert, not oriented but moving all extremities. No facial droop. Course Course Emergency Course: Elevated white blood cell count, x-ray with significant pneumonia on the right side. Ceftriaxone and azithromycin ordered. Blood cultures also ordered and lactic acid added on. Patient is very comfortable and wearing 2 L of oxygen. Will plan admission to the hospitalist service. Vital Signs Vital signs: Vital Signs Temperature 98.7 F 02/16/25 06:42 Pulse Rate 112 H 02/16/25 06:42 Respiratory Rate 22 H 02/16/25 06:42 Blood Pressure 112/46 L 02/16/25 06:42 Pulse Oximetry 91 02/16/25 06:42 Oxygen Delivery Room Air 02/16/25 06:42 Temperature 99.2 F 02/16/25 10:06 Pulse Rate 106 H 02/16/25 10:06 Respiratory Rate 20 02/16/25 10:06 Blood Pressure 126/101 H 02/16/25 10:06 Pulse Oximetry 96 02/16/25 10:06 Oxygen Delivery Nasal Cannula 02/16/25 10:06 Oxygen Flow Rate 2 02/16/25 10:06 [facility] Differential Diagnosis Differential Diagnosis: COVID, flu, pneumonia, sepsis, gastroenteritis, cholecystitis, bowel obstruction Lab Data [facility] Lab Attestation statement: I personally reviewed the patient's lab results. 02/16/25 07:44 02/16/25 07:44 Labs: Lab Results 02/16/25 02/16/25 02/16/25 Range/Units 07:24 07:44 08:49 WBC 14.7 H (4.5-10.0) K/mm3 RBC 3.91 L (4.2-5.4) M/mm3 Hgb 11.2 L (12.0-15.0) g/dL Hct 34.2 L (37.0-47.0) % MCV 87.5 (80-100) fl MCH 28.6 (26-34) pg MCHC 32.7 (32-36) g/dl RDW 14.2 (11.5-14.5) % Plt Count 238 (150-375) k/mm3 MPV 11.8 H (7.4-10.4) fl Immature Gran % (Auto) 0.3 (0-0.5) % Neut % (Auto) 92.0 H (45.5-73.1) % Lymph % (Auto) 3.8 L (18.3-44.2) % [place] % (Auto) 3.7 (2.6-8.5) % Eos % (Auto) 0.0 (0-4.4) % Baso % (Auto) 0.2 (0.2-1.2) % Lymph # (Auto) 0.56 L (0.9-3.2) K/mm3 [place] # (Auto) 0.6 (0.1-0.6) K/mm3 Eos # (Auto) 0.0 (0-0.3) K/mm3 Baso # (Auto) 0.0 (0.0-0.1) K/mm3 Abs Immat Gran (auto) 0.05 H (0.00-0.031) K/mm3 Absolute Neuts (auto) 13.5 H (1.3-6.7) K/mm3 Absolute Nucleated RBC 0.000 (0.0-0.012) K/mm3 Nucleated RBC % 0.0 (0.0-0.2) % Sodium 137 (137-145) mmol/L Potassium 4.1 (3.4-5.0) mmol/L Chloride 104 (98-107) mmol/L Carbon Dioxide 28 (22-30) mmol/L Anion Gap 5 (4-12) mmol/L BUN 15 (7-17) mg/dL Creatinine 0.79 (0.7-1.0) mg/dL Estim Creat Clear Calc Not Reportable Estimated GFR > 60 (59 - ) Glucose 118 H (65-110) mg/dL Calcium 10.1 (8.4-10.2) mg/dL Total Bilirubin 0.5 (0.2-1.3) mg/dL AST 23 (14-36) U/L ALT 15 (6-35) U/L Alkaline Phosphatase 117 (38-126) U/L Total Protein 6.0 L (6.3-8.2) g/dL Albumin 3.3 L (3.5-5.1) g/dL Lipase 20 L (23-300) U/L Urine Color Yellow (Yellow) Urine Appearance Clear (Clear) Urine pH 5.5 (5.0-9.0) Ur Specific [place] 1.015 (1.001-1.035) Urine Protein Negative (Negative) mg/dL Urine Glucose (UA) Negative (Negative) mg/dL Urine Ketones Negative (Negative) mg/dL Ur Blood (Man) Negative (Negative) Urine Nitrate Negative (Negative) Urine Bilirubin Negative (Negative) Urine Urobilinogen 1.0 (<2.0) mg/dL Leukocyte Esterase Rfl 1+ H (Negative) YAMILETH/UL Urine RBC 0-2 (0-2) /hpf Urine WBC 6-10 H (0-3) /hpf Ur Squamous Epith Cells None seen (Few) /hpf Urine Bacteria None seen /hpf Urine Casts 0-2 Influenza A (RT-PCR) Negative (Negative) Influenza B (RT-PCR) Negative (Negative) RSV (RT-PCR) Negative (Negative) SARS-CoV-2 RNA (RT-PCR) Negative (Negative) Imaging Data Radiologist's impression: ITS Impressions Chest X-Ray 02/16/25 08:43 IMPRESSION: 1. Large airspace disease right lung. Abdomen/Pelvis CT 02/16/25 08:44 IMPRESSION: 1. Right lung airspace disease. 2. No acute abnormality within abdomen or pelvis. Discharge Plan Discharge Clinical Impression: Pneumonia, Hypoxia Patient Disposition: Still a Patient Condition: Stable
[2025-02-16] MEDS: ONDANSETRON INJ 4 MG/2 ML VIAL IV PUSH (07:43)
[2025-02-16] MEDS: SODIUM CHLORIDE 0.9% IV 1,000 ML 999 ML IV CONT (07:43)
[2025-02-16 07:49] LABS: Hematocrit 34.2 % (37.0-47.0); Hemoglobin 11.2 g/dL (12.0-15.0); Immature Granulocyte Percent A 0.3 % (0-0.5); Lymphocytes Absolute Auto 0.56 K/mm3 (0.9-3.2); Mean Corpuscular HGB Conc 32.7 g/dl (32-36); Mean Corpuscular Hemoglobin 28.6 pg (26-34); Mean Corpuscular Volume 87.5 fl (80-100); Nucleated Red Blood Cells Absolute Auto 0.000 K/mm3 (0.0-0.012); Nucleated Red Blood Cells Perc 0.0 % (0.0-0.2); Platelet Count Result 238 k/mm3 (150-375); Red Blood Count 3.91 M/mm3 (4.2-5.4); White Blood Count 14.7 K/mm3 (4.5-10.0)
[2025-02-16 08:09] LABS: Alanine Aminotransferase 15 U/L (6-35); Albumin Level 3.3 g/dL (3.5-5.1); Alkaline Phosphatase 117 U/L (38-126); Anion Gap 5 mmol/L (4-12); Aspartate Amino Transferase 23 U/L (14-36); Bilirubin,Total 0.5 mg/dL (0.2-1.3); Blood Urea Nitrogen 15 mg/dL (7-17); Calcium 10.1 mg/dL (8.4-10.2); Carbon Dioxide 28 mmol/L (22-30); Chloride 104 mmol/L (98-107); Estimated Glomerular Filt Rate > 60; Glucose 118 mg/dL (65-110); Lipase 20 U/L (23-300); Potassium 4.1 mmol/L (3.4-5.0); Sodium 137 mmol/L (137-145); Total Protein 6.0 g/dL (6.3-8.2)
[2025-02-16 08:09] LABS: Influenza A QL RT-PCR Negative (Negative); Influenza B QL RT-PCR Negative (Negative); RSV RNA, RT-PCR Negative (Negative); SARS-CoV-2 RNA PCR Negative (Negative)
[2025-02-16 09:02] LABS: Add Urine Microscopic? YES; Appearance Urine Clear (Clear); Glucose Urine UA Negative (Negative); Leukocyte Esterase Ur 1+ LEU/UL (Negative); Nitrate Urine Negative (Negative); Non Pathogenic Casts 0-2; Specific Grav Ur 1.015 (1.001-1.035)
[2025-02-16] MEDS: cefTRIAXone 1 GM in SODIUM CHLORIDE 0.9% IV 50 ML 100 ML IVPB (10:05)
--- NOTE | 2025-02-16 10:08 | WPCEDHO ---
ED Hand Off Checklist All vitals saved:yes IV Site documented:yes All med administrations documented:yes Triage Note Triage Note brought in by em[facility] from [facility] 02/16/25 06:42 [place] for vomiting started today. according to pt started early this morning hx cva. Allergies Penicillins Allergy (Verified 10/23/23 10:03) Hives Family History (Last Reviewed 02/09/24 @ 07:49 by Eamon Aleman MD) Other Family history unknown Administered/Completed Medications Discontinued Medications Sodium Chloride (Normal Saline Iv) 1,000 mls @ 999 mls/hr IV CONT .Q1H1M STA Stop: 02/16/25 08:18 Last Infusion: 02/16/25 09:16 Dose: Infused Documented By: Admin: 02/16/25 07:43 Dose: 999 mls/hr Documented By: LYNETTE Ceftriaxone Sodium 1 gm/ (Sodium Chloride) 50 mls @ 100 mls/hr IVPB ONCE STA Stop: 02/16/25 09:12 Last Admin: 02/16/25 10:05 Dose: 100 mls/hr Documented By: LYNETTE Ondansetron HCl (Ondansetron Inj 4 Mg/2 Ml Vial) 4 mg IV PUSH ONCE STA Stop: 02/16/25 07:19 Last Admin: 02/16/25 07:43 Dose: 4 mg Documented By: LYNETTE Interventions/Assessments Cardiac Monitoring Start: 02/16/25 07:25 Freq: Status: Active Protocol: Document 02/16/25 07:26 LYNETTE (Rec: 02/16/25 07:26 LYNETTE [id number]) Industrial Property Appraiser Assessment Industrial Property Appraiser Yes Applied Pulse Rate (60-100) 110 H IV / Saline Lock, Insert Start: 02/16/25 07:25 Freq: Status: Active Protocol: Document 02/16/25 07:42 LYNETTE (Rec: 02/16/25 07:43 [facility] [id number]) IV Assessment Peripheral Access Left Wrist IV Catheter Access Initiated IV Insertion Date 02/16/25 IV Insertion Time 07:00 Catheter Gauge 18 IV Site Assessment WNL IV Care and WNL Maintenance PA: Cardiovascular Assessment Start: 02/16/25 07:25 Freq: Status: Active Protocol: Document 02/16/25 07:28 LYNETTE (Rec: 02/16/25 07:28 [facility] [id number]) Cardiovascular Assessment Cardiovascular Vomiting Symptoms PA: Neurological Assessment Start: 02/16/25 07:25 Freq: Status: Active Protocol: Document 02/16/25 07:28 LYNETTE (Rec: 02/16/25 07:28 LYNETTE [id number]) Neurological Assessment Level of Alert Consciousness Arousable to Verbal Orientation Unable to Assess Neurological Nausea/Vomiting Symptoms Behavior Cooperative Memory Description Unable to Assess Last Vital Signs Temperature 99.2 F 02/16/25 10:06 Pulse Rate 106 H 02/16/25 10:06 Respiratory Rate 20 02/16/25 10:06 Pulse Oximetry 96 02/16/25 10:06 Blood Pressure 126/101 H 02/16/25 10:06 Blood Pressure Mean 109 02/16/25 10:06 Blood Pressure Position Supine 02/16/25 10:06 Oxygen Delivery Nasal Cannula 02/16/25 10:06 Oxygen Flow Rate 2 02/16/25 10:06 Weight 59.8 kg 02/16/25 10:06 Last Result - Abnormals Only WBC 14.7 K/mm3 (4.5-10.0) H 02/16/25 07:44 RBC 3.91 M/mm3 (4.2-5.4) L 02/16/25 07:44 Hgb 11.2 g/dL (12.0-15.0) L 02/16/25 07:44 Hct 34.2 % (37.0-47.0) L 02/16/25 07:44 MPV 11.8 fl (7.4-10.4) H 02/16/25 07:44 Neut % (Auto) 92.0 % (45.5-73.1) H 02/16/25 07:44 Lymph % (Auto) 3.8 % (18.3-44.2) L 02/16/25 07:44 Lymph # (Auto) 0.56 K/mm3 (0.9-3.2) L 02/16/25 07:44 Abs Immat Gran (auto) 0.05 K/mm3 (0.00-0.031) H 02/16/25 07:44 Absolute Neuts (auto) 13.5 K/mm3 (1.3-6.7) H 02/16/25 07:44 Glucose 118 mg/dL (65-110) H 02/16/25 07:44 Total Protein 6.0 g/dL (6.3-8.2) L 02/16/25 07:44 Albumin 3.3 g/dL (3.5-5.1) L 02/16/25 07:44 Lipase 20 U/L (23-300) L 02/16/25 07:44 Leukocyte Esterase Rfl 1+ YAMILETH/UL (Negative) H 02/16/25 08:49 Urine WBC 6-10 /hpf (0-3) H 02/16/25 08:49
--- NOTE | 2025-02-16 11:52 | ADMGEN ---
This patient, Salome Villeda, was admitted to [facility] Surg Room 306-02. Patient/family oriented to hospital policies and general routines including ID bracelet, bed and alarms, visiting hours, pain management, procedures, bathroom and other care routines, personal items, smoking policy, room service/diet, and visiting hours. Information on how to activate the Rapid Response Team has been discussed. Patient/Family are encouraged to report perceived risks to care and to ask questions if they do not understand what they are told or what they should do. report received from Lauren LARKIN from ER dept.
--- NOTE | 2025-02-16 14:33 | PM.IMHP2 ---
H&P: HPI History of Present Illness Date/Time: 02/16/25 14:33 Chief Complaint: Dark emesis Narrative: 79 F with PMH of hyperlipidemia, bipolar disorder, schizoaffective disorder, hyperparathyroidism cognitive communication deficits was brought to the ER on account of dark emesis. Patient was lethargic unable to communicate at the time of this encounter Emergency room evaluation pulse rate 109, respiratory rate 20, saturation 98% on 2 L oxygen, blood pressure 122/86 Labs notable for WBC 14.7, hemoglobin 11.2 CT abdomen showed a right lung airspace disease. Review of Systems Review of Systems: Unable to do review of systems due to altered mental status. [facility] Past Medical History Medical History (Updated 02/16/25 @ 09:19 by Travis Colindres MD) Cognitive communication deficit Gastroesophageal reflux disease Hyperparathyroidism Hyperlipidemia Bipolar disorder Schizoaffective disorder Surgical History Surgical History History of cataract extraction with lens replacement History of total right hip arthroplasty Family History Family History Other Family history unknown Social History Social History Social History: Surrogate medical decision maker: Leighann Villeda. Code status: Do not resuscitate. Smoking status: Unknown if ever smoked Alcohol intake: unknown Substance use: unknown Substance use type: does not use Lack of Transportation: No Lack of Food: Never True Current Housing: I Have Housing Concerned About Future Housing: No Difficulty Paying Gas/Electric Bills: No Difficulty Paying for Meds: No Currently Unemployed: No Education: Decline to Answer Difficulty w/ Childcare or Family Care: No Additional living arrangements comments: Patient resides at [facility]. Spiritual care concerns: No Meds Home Medications and Allergies Home Medications ?Medication ?Instructions ?Recorded ?Confirmed ?Type acetaminophen 500 mg tablet 1,000 mg PO Q4H PRN Pain 10/30/23 02/16/25 History aspirin 81 mg tablet,delayed 81 mg PO DAILY 10/30/23 02/16/25 History release calcium 600 mg (as carbonate)-vit 1 tablet PO DAILY 10/30/23 02/16/25 History D3 10 mcg (400 unit) chewable tablet (Calcium 600 with Vitamin D3) clozapine 100 mg tablet 100 mg PO BID 10/30/23 02/16/25 History clozapine 25 mg tablet 25 mg PO BID 10/30/23 02/16/25 History clozapine 50 mg tablet 150 mg PO HS 10/30/23 02/16/25 History docusate sodium 100 mg capsule 100 mg PO HS 10/30/23 02/16/25 History escitalopram oxalate 10 mg tablet 10 mg PO HS 10/30/23 02/16/25 History fluticasone propionate 50 2 spray intranasal HS 10/30/23 02/16/25 History mcg/actuation nasal spray,suspension linaclotide 145 mcg capsule 145 mcg PO DAILY 10/30/23 02/16/25 History (Linzess) multivitamin with iron 1 tablet PO DAILY 10/30/23 02/16/25 History oxybutynin chloride 5 mg tablet 5 mg PO DAILY 10/30/23 02/16/25 History pantoprazole 40 mg tablet,delayed 40 mg PO DAILY 10/30/23 02/16/25 History release cholecalciferol (vitamin D3) 50 50 mcg PO DAILY 02/16/25 02/16/25 History mcg (2,000 unit) tablet (Vitamin D3) mirtazapine 15 mg tablet 15 mg PO HS 02/16/25 02/16/25 History Allergies Allergy/AdvReac Type Severity Reaction Status Date / Time Penicillins Allergy Hives Verified 02/16/25 11:54 Vital Signs Vital Signs - 24 hr 02/16/25 06:42 02/16/25 07:26 02/16/25 07:26 Temperature 98.7 F Pulse Rate 112 H 110 H Respiratory Rate 22 H Blood Pressure 112/46 L Pulse Oximetry 91 98 Oxygen Delivery Room Air Nasal Cannula Oxygen Flow Rate 2 02/16/25 07:27 02/16/25 09:57 02/16/25 10:06 Temperature 99.2 F Pulse Rate 109 H 104 H 106 H Respiratory Rate 20 18 20 Blood Pressure 122/86 126/101 H Pulse Oximetry 98 96 96 Oxygen Delivery Nasal Cannula Oxygen Flow Rate 2 2 Exam Narrative: General: alert and comfortable, non verbal Eyes: EOMI, PERRLA ENNT External ears normal, Neck is supple, no masses, Respiratory systems: Clear to auscultation Cardiovascular S1, S2, normal rhythm, no murmur, rub, or gallop; no thrill or palpable murmurs on palpation. Gastrointestinal: soft, non-tender, and non-distended abdomen with no masses; BS present Skin: no rash, lesions, ulcerations, subcutaneous nodules or induration Musculoskeletal: no abnormality and no tenderness, normal ROM Neurologic: Alert and non committal, not cooperative Mental Status Exam: normal affect Results Labs Labs: Short CBC 02/16/25 Range/Units 07:44 WBC 14.7 H (4.5-10.0) K/mm3 Hgb 11.2 L (12.0-15.0) g/dL Hct 34.2 L (37.0-47.0) % Plt Count 238 (150-375) k/mm3 BMP 02/16/25 07:44 Sodium 137 Potassium 4.1 Chloride 104 Carbon Dioxide 28 BUN 15 Creatinine 0.79 Glucose 118 H Calcium 10.1 Liver Function 02/16/25 Range/Units 07:44 Total Bilirubin 0.5 (0.2-1.3) mg/dL AST 23 (14-36) U/L ALT 15 (6-35) U/L Alkaline Phosphatase 117 (38-126) U/L Albumin 3.3 L (3.5-5.1) g/dL Urine 02/16/25 Range/Units 08:49 Urine Color Yellow (Yellow) Urine Appearance Clear (Clear) Urine pH 5.5 (5.0-9.0) Ur Specific [place] 1.015 (1.001-1.035) Urine Protein Negative (Negative) mg/dL Urine Glucose (UA) Negative (Negative) mg/dL Assessment and Plan Assessment and plan (1) Acute respiratory failure with hypoxia: Code(s): J96.01 - Acute respiratory failure with hypoxia Status: Acute (2) Community acquired pneumonia: Code(s): J18.9 - Pneumonia, unspecified organism Status: Acute Plan Acute hypoxemic respiratory failire From PNA CT and CXR reviewed titrate oxygen with clinical course Pneumonia CT showed RLL pneumonia Blood culture Continue Rocephin, Flagyl and Azithromycin ST for swallow eval monitor Bipolar and Schizoaffective disorders conitnue home meds Hyperlipidemia continue home meds DVT prophylaxis on Sq Lovenox DNR Hospitalist MIPS Advance Care Plan I have confirmed that the patient's Advanced Care Plan is present, code status is documented, or surrogate decision maker is listed in patient medical record.: Yes Medication Reconciliation I have utilized all available resources to obtain, update and review the patients current medications (includes all prescriptions, OTC, herbals, cannabis, and nutritional supplements).: Yes
[2025-02-16] MEDS: metroNIDAZOLE 500 MG/ISO 100ML 500 MG/100 ML BAG 100 MG IVPB ×2 (14:40→21:11)
--- NOTE | 2025-02-16 15:10 | PCSTNOTE ---
Please refer to the Bedside Swallow Evaluation in the EMR. Please note, silent aspiration cannot be ruled out at bedside.
--- NOTE | 2025-02-16 15:55 | WPDGICN ---
Assessment and Plan Assessment and plan (1) Hematemesis: Qualifiers: Nausea presence: unspecified Qualified Code(s): K92.0 - Hematemesis Code(s): K92.0 - Hematemesis Status: Acute (2) Normocytic anemia: Code(s): D64.9 - Anemia, unspecified Status: Acute Plan 1. Hematemesis/anemia: EGD in colonoscopy history unknown. Patient presented to the emergency room today with complaints of hematemesis unclear if this was witnessed. She has had no nausea, vomiting or hematemesis since admission. She was admitted for acute hypoxemic respiratory failure and pneumonia. Labs on admission showed WBC is 15, HGB 11, HCT 34, MCV 88 and platelets 238. No signs of active GI bleeding. DDX: Peptic ulcer disease versus AVM versus esophageal varices versus neoplasm versus small bowel source of bleeding. Patient is currently a poor endoscopy candidate given her respiratory status Will continue to monitor and if H&H remain stable we can consider an EGD outpatient once her acute issues have been addressed Thank you very much for allowing me to share in the care of this very nice patient. This report may have been done utilizing a voice recognition system. Attempts have been made to correct errors. However, there may be uncorrected grammatical, spelling, and recognition errors present. GI Consult Note Consult date/time: 02/16/25 15:55 Reason for consult: Hematemesis HPI: Salome Villeda is a 79 year old female with PMSH of cognitive communication deficit, GERD, hyperparathyroidism, HLD, bipolar disorder and schizophrenia. Patient presented to the emergency room today with complaints of nausea, vomiting, abdominal pain and dark emesis. GI has been consulted for hematemesis. Patient with altered mental status and is very hard of hearing making obtaining subjective information very difficult. Patient with no episodes of hematemesis since she presented to the hospital. Is unclear if this hematemesis was witnessed. She was admitted for acute hypoxemic respiratory failure and pneumonia. ENDOSCOPY HISTORY: EGD and colonoscopy history unknown LABS AND STOOL STUDIES: Labs 02/16/2025: WBC 15, Hgb 11, Hct 34, MCV 88, platelets 238 Sodium 137, potassium 4.1, BUN 15, creatinine 0.79, GFR >60, calcium 10.1 Total bilirubin 0.5, AST 23, ALT 15, Alkaline Phos 117, albumin 3.3, lipase 20 IMAGING: CT abd/pelvis w/contrast 02/16/2025: IMPRESSION: 1. Right lung airspace disease. 2. No acute abnormality within abdomen or pelvis. Review of Systems Review of Systems: ROS unobtainable: Yes unobtainable due to medical condition and unobtainable due to mental status [facility] Past Medical History Medical History (Updated 02/16/25 @ 19:16 by Brittney Warren APRN) Cognitive communication deficit Gastroesophageal reflux disease Hyperparathyroidism Hyperlipidemia Bipolar disorder Schizoaffective disorder Surgical History Surgical History History of cataract extraction with lens replacement History of total right hip arthroplasty Social History Social History Social History: Surrogate medical decision maker: Leighann Villeda. Code status: Do not resuscitate. Smoking status: Unknown if ever smoked Alcohol intake: unknown Substance use: unknown Substance use type: does not use Lack of Transportation: No Lack of Food: Never True Current Housing: I Have Housing Concerned About Future Housing: No Difficulty Paying Gas/Electric Bills: No Difficulty Paying for Meds: No Currently Unemployed: No Education: Decline to Answer Difficulty w/ Childcare or Family Care: No Additional living arrangements comments: Patient resides at [facility]. Spiritual care concerns: No Meds Home Medications and Allergies Home Medications ?Medication ?Instructions ?Recorded ?Confirmed ?Type acetaminophen 500 mg tablet 1,000 mg PO Q4H PRN Pain 10/30/23 02/16/25 History aspirin 81 mg tablet,delayed 81 mg PO DAILY 10/30/23 02/16/25 History release calcium 600 mg (as carbonate)-vit 1 tablet PO DAILY 10/30/23 02/16/25 History D3 10 mcg (400 unit) chewable tablet (Calcium 600 with Vitamin D3) clozapine 100 mg tablet 100 mg PO BID 10/30/23 02/16/25 History clozapine 25 mg tablet 25 mg PO BID 10/30/23 02/16/25 History clozapine 50 mg tablet 150 mg PO HS 10/30/23 02/16/25 History docusate sodium 100 mg capsule 100 mg PO HS 10/30/23 02/16/25 History escitalopram oxalate 10 mg tablet 10 mg PO HS 10/30/23 02/16/25 History fluticasone propionate 50 2 spray intranasal HS 10/30/23 02/16/25 History mcg/actuation nasal spray,suspension linaclotide 145 mcg capsule 145 mcg PO DAILY 10/30/23 02/16/25 History (Linzess) multivitamin with iron 1 tablet PO DAILY 10/30/23 02/16/25 History oxybutynin chloride 5 mg tablet 5 mg PO DAILY 10/30/23 02/16/25 History pantoprazole 40 mg tablet,delayed 40 mg PO DAILY 10/30/23 02/16/25 History release cholecalciferol (vitamin D3) 50 50 mcg PO DAILY 02/16/25 02/16/25 History mcg (2,000 unit) tablet (Vitamin D3) mirtazapine 15 mg tablet 15 mg PO HS 02/16/25 02/16/25 History Allergies Allergy/AdvReac Type Severity Reaction Status Date / Time Penicillins Allergy Hives Verified 02/16/25 11:54 Vital Signs Vital Signs - 24 hr 02/16/25 06:42 02/16/25 07:26 02/16/25 07:26 Temperature 98.7 F Pulse Rate 112 H 110 H Respiratory Rate 22 H Blood Pressure 112/46 L Pulse Oximetry 91 98 Oxygen Delivery Room Air Nasal Cannula Oxygen Flow Rate 2 02/16/25 07:27 02/16/25 09:57 02/16/25 10:06 Temperature 99.2 F Pulse Rate 109 H 104 H 106 H Respiratory Rate 20 18 20 Blood Pressure 122/86 126/101 H Pulse Oximetry 98 96 96 Oxygen Delivery Nasal Cannula Oxygen Flow Rate 2 2 02/16/25 14:00 Temperature 97.7 F Pulse Rate 84 Respiratory Rate 18 Blood Pressure 109/59 L Pulse Oximetry 100 Oxygen Delivery Oxygen Flow Rate Exam Const: General: comfortable and no acute distress HENMT: Ears: TM's normal bilaterally Face/Nose/Sinus: Normal nares present Mouth: Yes moist mucous membranes Eyes: General: appearance normal, both eyes and all related structures Sclera: sclerae normal Pupils: Equal, round and reactive pupils present Neck: Neck: supple Lymphatic: lymphadenopathy not noted Resp: Effort & Inspection: abnormal respiratory effort Auscultation: diminished lung sounds Cardio: Rate: regular rate Rhythm: regular rhythm GI: GI Palp: Yes Soft to palpation, No Tenderness to palpation present (GI) and No Guarding due to palpation present (GI) Skin: General skin exam: normal color Extrem: General: normal to inspection Psych: Mental Status: mental status grossly abnormal Results Labs 02/16/25 07:44 02/16/25 07:44 Labs: Short CBC 02/16/25 Range/Units 07:44 WBC 14.7 H (4.5-10.0) K/mm3 Hgb 11.2 L (12.0-15.0) g/dL Hct 34.2 L (37.0-47.0) % Plt Count 238 (150-375) k/mm3 BMP 02/16/25 07:44 Sodium 137 Potassium 4.1 Chloride 104 Carbon Dioxide 28 BUN 15 Creatinine 0.79 Glucose 118 H Calcium 10.1 Liver Function 02/16/25 Range/Units 07:44 Total Bilirubin 0.5 (0.2-1.3) mg/dL AST 23 (14-36) U/L ALT 15 (6-35) U/L Alkaline Phosphatase 117 (38-126) U/L Albumin 3.3 L (3.5-5.1) g/dL Urine 02/16/25 Range/Units 08:49 Urine Color Yellow (Yellow) Urine Appearance Clear (Clear) Urine pH 5.5 (5.0-9.0) Ur Specific [place] 1.015 (1.001-1.035) Urine Protein Negative (Negative) mg/dL Urine Glucose (UA) Negative (Negative) mg/dL
[2025-02-16] MEDS: MIRTAZAPINE 15 MG TABLET PO (20:44)
[2025-02-16] MEDS: PANTOPRAZOLE SODIUM IV 40 MG VIAL IV PUSH (20:44)
[2025-02-16] MEDS: FLUTICASONE PROPIONATE 0.05% NA SPR 16 GM BTL (*BKC) 2 SPRAY NASAL (21:15)
[2025-02-17] MEDS: metroNIDAZOLE 500 MG/ISO 100ML 500 MG/100 ML BAG 100 MG IVPB ×3 (05:38→22:59)
[2025-02-17 05:52] VITALS: BP 102/46; PULSE 60; RESP 14; TEMP 36.7; O2SAT 98
[2025-02-17] MEDS: ASPIRIN 81 MG ENTERIC TABLET PO (08:53)
[2025-02-17] MEDS: PANTOPRAZOLE SODIUM IV 40 MG VIAL IV PUSH ×2 (08:54→20:24)
[2025-02-17] MEDS: cefTRIAXone 1 GM in SODIUM CHLORIDE 0.9% IV 50 ML 100 ML IVPB (09:01)
[2025-02-17] MEDS: AZITHROMYCIN IV 500 MG in SODIUM CHLORIDE 0.9% IV 250 ML IVPB (09:02)
--- NOTE | 2025-02-17 11:51 | P.PNGI_ITS ---
Progress Note: A&P Assessment and Plan (1) Normocytic anemia: Code(s): D64.9 - Anemia, unspecified Status: Acute (2) Hematemesis: Qualifiers: Nausea presence: unspecified Qualified Code(s): K92.0 - Hematemesis Code(s): K92.0 - Hematemesis Status: Acute (3) Hypoxia: Code(s): R09.02 - Hypoxemia Status: Acute Plan 79-year-old female who reported having hematemesis. There is no sign of upper GI bleed since yesterday. Patient did have a bowel movement with no blood seen in the stool. Plan 1. Monitor H&H daily. 2. Increase diet as tolerated. 3. Improved respiratory status. Time Spent With Patient Time: 25 minutes Subjective Date/time seen: 02/17/25 11:51 Interval history: Patient had no hematemesis. No abdominal pain. No active bleeding. She did have a bowel movement this morning. Patient still having difficulty breathing. Review of Systems Review of Systems: 11 review of symptoms negative except th e ones mentioned in the H&P. Exam Narrative: Physical examination is unremarkable. Objective Data Vital Signs Vital Signs: Vital Signs - 24 hr 02/16/25 14:00 02/16/25 20:40 02/16/25 21:49 Temperature 97.7 F 99.0 F Pulse Rate 84 87 Respiratory Rate 18 16 Blood Pressure 109/59 L 90/61 L Pulse Oximetry 100 99 92 Oxygen Delivery Nasal Cannula Oxygen Flow Rate 4 02/17/25 05:52 Temperature 98.1 F Pulse Rate 60 Respiratory Rate 14 Blood Pressure 102/46 L Pulse Oximetry 98 Oxygen Delivery Oxygen Flow Rate Intake/Output Intake/Output: Intake & Output 02/14/25 02/15/25 02/16/25 02/17/25 23:59 23:59 23:59 23:59 Intake Total 1490 220 Output Total 400 Balance 1490 -180 Meds/Results Medications: Active Medications Generic Name Dose Route Start Last Admin Trade Name Freq PRN Reason Stop Dose Admin Acetaminophen 650 mg 02/16/25 09:45 Acetaminophen 325 Mg Tablet PO Q4H PRN Mild Pain (1-3) or Fever Hydrocodone Bitart/Acetaminophen 1 tab 02/16/25 09:45 Hydrocodone/Acetaminophen (*Crx) 5-325 Mg Tablet PO Q4H PRN Pain Rated 4-6 Aspirin 81 mg 02/17/25 09:00 02/17/25 08:53 Aspirin 81 Mg Enteric Tablet PO 81 mg DAILY ZANE Administration Fluticasone Propionate 2 spray 02/16/25 21:00 02/16/25 21:15 Fluticasone Propionate 0.05% Na Spr 16 Gm Btl (*Bkc) NASAL 2 spray HS ZANE Administration Ceftriaxone Sodium 1 gm/ 50 mls @ 100 mls/hr 02/17/25 09:00 02/17/25 09:01 Sodium Chloride IVPB 100 mls/hr Q24H ZANE Administration Azithromycin 500 mg/ Sodium 250 mls @ 250 mls/hr 02/17/25 09:00 02/17/25 09:02 Chloride IVPB 02/20/25 09:59 250 mls/hr Q24H ZANE Administration Metronidazole 500 mg in 100 mls @ 100 mls/hr 02/16/25 14:35 02/17/25 05:38 Flagyl 500 Mg/Iso Soln 100 Ml IVPB 100 mls/hr Q8HR ZANE Administration Mirtazapine 15 mg 02/16/25 21:00 02/16/25 20:44 Mirtazapine 15 Mg Tablet PO 15 mg HS ZANE Administration Ondansetron HCl 4 mg 02/16/25 09:45 Ondansetron Inj 4 Mg/2 Ml Vial IV PUSH Q4H PRN Nausea Oxybutynin Chloride 5 mg 02/17/25 09:00 02/17/25 08:53 Oxybutynin Chloride 5 Mg Tablet PO 5 mg DAILY ZANE Administration Pantoprazole Sodium 40 mg 02/17/25 09:00 Pantoprazole 40 Mg Tablet PO On Hold: 02/17/25 09:00 DAILY ZANE Comment: HOLD WHILE IV PUSH ORDER IS ACTIVE Pantoprazole Sodium 40 mg 02/16/25 21:00 02/17/25 08:54 Pantoprazole Sodium Iv 40 Mg Vial IV PUSH 40 mg Q12HR ZANE Administration Radiology Results: ITS Impressions Chest X-Ray 02/16/25 08:43 IMPRESSION: 1. Large airspace disease right lung. Abdomen/Pelvis CT 02/16/25 08:44 IMPRESSION: 1. Right lung airspace disease. 2. No acute abnormality within abdomen or pelvis.
[2025-02-17 14:00] VITALS: BP 101/75; PULSE 80; RESP 18; TEMP 37.1; O2SAT 97
--- NOTE | 2025-02-17 18:07 | PM.IMPN2 ---
Assessment and Plan Assessment and Plan (1) Hypoxia: Code(s): R09.02 - Hypoxemia Status: Acute (2) Community acquired pneumonia: Code(s): J18.9 - Pneumonia, unspecified organism Status: Acute (3) Rhinitis: Code(s): J31.0 - Chronic rhinitis Status: Acute Plan Presented with hematemesis. No signs since admission. She had a small formed stool on 02/17/2025 brown in color. Diet as tolerated, monitor H&H. GI consultation appreciated. Continue wean oxygen as tolerated. Follow-up blood cultures. Continue ceftriaxone, azithromycin, metronidazole. Start loratadine for rhinitis. Continue fluticasone 2 sprays nasally HS. DNR. Subjective Date/time seen: 02/17/25 18:07 Interval history: No major acute overnight events. Patient has no complaints aside from feeling stuffy nose. Review of Systems Review of Systems: All systems reviewed & are unremarkable except as noted in HPI and below (Subjective) Exam Const: General: comfortable HENMT: Mouth: Yes moist mucous membranes Eyes: Pupils: Equal, round and reactive pupils present Neck: Neck: supple Resp: Effort & Inspection: normal respiratory effort Cardio: Rate: regular rate Rhythm: regular rhythm GI: Inspection: non-distended GI Palp: Yes Soft to palpation Extrem: General: no edema Objective Data Vital Signs Vital Signs: Vital Signs - 24 hr 02/16/25 20:40 02/16/25 21:49 02/17/25 05:52 Temperature 99.0 F 98.1 F Pulse Rate 87 60 Respiratory Rate 16 14 Blood Pressure 90/61 L 102/46 L Pulse Oximetry 99 92 98 Oxygen Delivery Nasal Cannula Oxygen Flow Rate 4 02/17/25 14:00 Temperature 98.7 F Pulse Rate 80 Respiratory Rate 18 Blood Pressure 101/75 Pulse Oximetry 97 Oxygen Delivery Oxygen Flow Rate Intake/Output Intake/Output: Intake & Output 02/14/25 02/15/25 02/16/25 02/17/25 23:59 23:59 23:59 23:59 Intake Total 1490 720 Output Total 400 Balance 1490 320 Meds/Results Medications: Active Medications Generic Name Dose Route Start Last Admin Trade Name Freq PRN Reason Stop Dose Admin Acetaminophen 650 mg 02/16/25 09:45 Acetaminophen 325 Mg Tablet PO Q4H PRN Mild Pain (1-3) or Fever Hydrocodone Bitart/Acetaminophen 1 tab 12/26/25 09:45 Hydrocodone/Acetaminophen (*Crx) 5-325 Mg Tablet PO Q4H PRN Pain Rated 4-6 Aspirin 81 mg 02/17/25 09:00 02/17/25 08:53 Aspirin 81 Mg Enteric Tablet PO 81 mg DAILY ZANE Administration Fluticasone Propionate 2 spray 02/16/25 21:00 02/16/25 21:15 Fluticasone Propionate 0.05% Na Spr 16 Gm Btl (*Bkc) NASAL 2 spray HS ZANE Administration Ceftriaxone Sodium 1 gm/ 50 mls @ 100 mls/hr 02/17/25 09:00 02/17/25 09:31 Sodium Chloride IVPB Infused Q24H ZANE Infusion Azithromycin 500 mg/ Sodium 250 mls @ 250 mls/hr 02/17/25 09:00 02/17/25 10:02 Chloride IVPB 02/20/25 09:59 Infused Q24H ZANE Infusion Metronidazole 500 mg in 100 mls @ 100 mls/hr 02/16/25 14:35 02/17/25 15:48 Flagyl 500 Mg/Iso Soln 100 Ml IVPB Infused Q8HR ZANE Infusion Mirtazapine 15 mg 02/16/25 21:00 02/16/25 20:44 Mirtazapine 15 Mg Tablet PO 15 mg HS ZANE Administration Ondansetron HCl 4 mg 02/16/25 09:45 Ondansetron Inj 4 Mg/2 Ml Vial IV PUSH Q4H PRN Nausea Oxybutynin Chloride 5 mg 02/17/25 09:00 02/17/25 08:53 Oxybutynin Chloride 5 Mg Tablet PO 5 mg DAILY ZANE Administration Pantoprazole Sodium 40 mg 02/17/25 09:00 Pantoprazole 40 Mg Tablet PO On Hold: 02/17/25 09:00 DAILY ZANE Comment: HOLD WHILE IV PUSH ORDER IS ACTIVE Pantoprazole Sodium 40 mg 02/16/25 21:00 02/17/25 08:54 Pantoprazole Sodium Iv 40 Mg Vial IV PUSH 40 mg Q12HR ZANE Administration Radiology Results: ITS Impressions Chest X-Ray 02/16/25 08:43 IMPRESSION: 1. Large airspace disease right lung. Abdomen/Pelvis CT 02/16/25 08:44 IMPRESSION: 1. Right lung airspace disease. 2. No acute abnormality within abdomen or pelvis.
[2025-02-17] MEDS: LORATADINE 10 MG TABLET PO (18:33)
[2025-02-17 20:00] VITALS: O2SAT 98
[2025-02-17] MEDS: FLUTICASONE PROPIONATE 0.05% NA SPR 16 GM BTL (*BKC) 2 SPRAY NASAL (20:24)
[2025-02-17] MEDS: MIRTAZAPINE 15 MG TABLET PO (20:24)
[2025-02-17 21:54] VITALS: BP 117/52; PULSE 73; RESP 20; TEMP 36.6; O2SAT 99
[2025-02-18] MEDS: metroNIDAZOLE 500 MG/ISO 100ML 500 MG/100 ML BAG 100 MG IVPB ×3 (05:42→22:02)
[2025-02-18 06:00] VITALS: BP 128/66; PULSE 72; RESP 18; TEMP 36.7; O2SAT 100
[2025-02-18 06:29] LABS: Hematocrit 34.2 % (37.0-47.0); Hemoglobin 11.0 g/dL (12.0-15.0); Immature Granulocyte Percent A 0.7 % (0-0.5); Lymphocytes Absolute Auto 2.26 K/mm3 (0.9-3.2); Mean Corpuscular HGB Conc 32.2 g/dl (32-36); Mean Corpuscular Hemoglobin 28.2 pg (26-34); Mean Corpuscular Volume 87.7 fl (80-100); Nucleated Red Blood Cells Absolute Auto 0.000 K/mm3 (0.0-0.012); Nucleated Red Blood Cells Perc 0.0 % (0.0-0.2); Platelet Count Result 248 k/mm3 (150-375); Red Blood Count 3.90 M/mm3 (4.2-5.4); White Blood Count 10.3 K/mm3 (4.5-10.0)
[2025-02-18 06:52] LABS: Alanine Aminotransferase 10 U/L (6-35); Albumin Level 2.9 g/dL (3.5-5.1); Alkaline Phosphatase 121 U/L (38-126); Anion Gap 2 mmol/L (4-12); Aspartate Amino Transferase 25 U/L (14-36); Bilirubin,Total 0.4 mg/dL (0.2-1.3); Blood Urea Nitrogen 10 mg/dL (7-17); Calcium 10.3 mg/dL (8.4-10.2); Carbon Dioxide 31 mmol/L (22-30); Chloride 107 mmol/L (98-107); Estimated CRCL calculation 43 ml/min; Estimated Glomerular Filt Rate > 60; Glucose 82 mg/dL (65-110); Magnesium 1.8 mg/dL (1.6-2.3); Potassium 3.6 mmol/L (3.4-5.0); Sodium 140 mmol/L (137-145); Total Protein 5.7 g/dL (6.3-8.2)
[2025-02-18] MEDS: AZITHROMYCIN IV 500 MG in SODIUM CHLORIDE 0.9% IV 250 ML IVPB (08:46)
[2025-02-18] MEDS: LORATADINE 10 MG TABLET PO (08:47)
[2025-02-18] MEDS: ASPIRIN 81 MG ENTERIC TABLET PO (08:47)
[2025-02-18 08:50] VITALS: PULSE 72; RESP 18; O2SAT 100
[2025-02-18] MEDS: PANTOPRAZOLE SODIUM IV 40 MG VIAL IV PUSH ×2 (08:52→21:03)
[2025-02-18] MEDS: cefTRIAXone 1 GM in SODIUM CHLORIDE 0.9% IV 50 ML 100 ML IVPB (09:55)
--- NOTE | 2025-02-18 10:57 | WPDGIPROGNO ---
Progress Note: A&P Assessment and Plan (1) Hematemesis: Qualifiers: Nausea presence: unspecified Qualified Code(s): K92.0 - Hematemesis Code(s): K92.0 - Hematemesis Status: Acute (2) Normocytic anemia: Code(s): D64.9 - Anemia, unspecified Status: Acute Plan 79-year-old female who reported having hematemesis. There was no further upper GI bleed. The her family level is stable at 11.0. Patient had respiratory distress but is improving over the last 24 hours. Plan 1. Order CBC for tomorrow morning. 3. Regular diet. Time Spent With Patient Time with patient: 15 - 25 minutes Subjective Date/time seen: 02/18/25 10:57 Interval history: Patient feels much better. No hematemesis. No rectal bleeding. Her respiratory status has improved slightly since yesterday. Review of Systems Review of Systems: All 11 review symptoms and negative except the ones mentioned in the H&P. Exam Const: General: comfortable HENMT: Mouth: Yes moist mucous membranes Eyes: Pupils: Equal, round and reactive pupils present Neck: Neck: supple Resp: Effort & Inspection: normal respiratory effort Cardio: Rate: regular rate Rhythm: regular rhythm GI: Inspection: non-distended GI Palp: Yes Soft to palpation Extrem: General: no edema Objective Data Vital Signs Vital Signs: Vital Signs - 24 hr 02/17/25 14:00 02/17/25 20:00 02/17/25 21:54 Temperature 98.7 F 97.8 F Pulse Rate 80 73 Respiratory Rate 18 20 Blood Pressure 101/75 117/52 L Pulse Oximetry 97 98 99 Oxygen Delivery Nasal Cannula Oxygen Flow Rate 4 02/18/25 06:00 02/18/25 08:50 Temperature 98.1 F Pulse Rate 72 72 Respiratory Rate 18 18 Blood Pressure 128/66 Pulse Oximetry 100 100 Oxygen Delivery Nasal Cannula Oxygen Flow Rate 2 Intake/Output Intake/Output: Intake & Output 02/15/25 02/16/25 02/17/25 02/18/25 23:59 23:59 23:59 23:59 Intake Total 1490 940 250 Output Total 1250 Balance 1490 -310 250 Meds/Results Medications: Active Medications Generic Name Dose Route Start Last Admin Trade Name Freq PRN Reason Stop Dose Admin Acetaminophen 650 mg 02/16/25 09:45 Acetaminophen 325 Mg Tablet PO Q4H PRN Mild Pain (1-3) or Fever Hydrocodone Bitart/Acetaminophen 1 tab 02/16/25 09:45 Hydrocodone/Acetaminophen (*Crx) 5-325 Mg Tablet PO Q4H PRN Pain Rated 4-6 Aspirin 81 mg 02/17/25 09:00 02/18/25 08:47 Aspirin 81 Mg Enteric Tablet PO 81 mg DAILY ZANE Administration Fluticasone Propionate 2 spray 02/16/25 21:00 02/17/25 20:24 Fluticasone Propionate 0.05% Na Spr 16 Gm Btl (*Bkc) NASAL 2 spray HS ZANE Administration Ceftriaxone Sodium 1 gm/ 50 mls @ 100 mls/hr 02/17/25 09:00 02/18/25 09:55 Sodium Chloride IVPB 100 mls/hr Q24H ZANE Administration Azithromycin 500 mg/ Sodium 250 mls @ 250 mls/hr 02/17/25 09:00 02/18/25 08:46 Chloride IVPB 02/20/25 09:59 250 mls/hr Q24H ZANE Administration Metronidazole 500 mg in 100 mls @ 100 mls/hr 02/16/25 14:35 02/18/25 05:42 Flagyl 500 Mg/Iso Soln 100 Ml IVPB 100 mls/hr Q8HR ZANE Administration Loratadine 10 mg 02/17/25 18:10 02/18/25 08:47 Loratadine 10 Mg Tablet PO 10 mg QAM ZANE Administration Mirtazapine 15 mg 02/16/25 21:00 02/17/25 20:24 Mirtazapine 15 Mg Tablet PO 15 mg HS ZANE Administration Ondansetron HCl 4 mg 02/16/25 09:45 Ondansetron Inj 4 Mg/2 Ml Vial IV PUSH Q4H PRN Nausea Oxybutynin Chloride 5 mg 02/17/25 09:00 02/18/25 08:47 Oxybutynin Chloride 5 Mg Tablet PO 5 mg DAILY ZANE Administration Pantoprazole Sodium 40 mg 02/17/25 09:00 Pantoprazole 40 Mg Tablet PO On Hold: 02/17/25 09:00 DAILY ZANE Comment: HOLD WHILE IV PUSH ORDER IS ACTIVE Pantoprazole Sodium 40 mg 02/16/25 21:00 02/18/25 08:52 Pantoprazole Sodium Iv 40 Mg Vial IV PUSH 40 mg Q12HR ZANE Administration Radiology Results: ITS Impressions Chest X-Ray 02/16/25 08:43 IMPRESSION: 1. Large airspace disease right lung. Abdomen/Pelvis CT 02/16/25 08:44 IMPRESSION: 1. Right lung airspace disease. 2. No acute abnormality within abdomen or pelvis. Labs Labs: Laboratory Results - last 24 hr 02/18/25 05:39 WBC 10.3 H RBC 3.90 L Hgb 11.0 L Hct 34.2 L MCV 87.7 MCH 28.2 MCHC 32.2 RDW 14.3 Plt Count 248 MPV 12.1 H Immature Gran % (Auto) 0.7 H Neut % (Auto) 67.8 Lymph % (Auto) 22.0 Terrell % (Auto) 9.2 H Eos % (Auto) 0.0 Baso % (Auto) 0.3 Lymph # (Auto) 2.26 Terrell # (Auto) 0.9 H Eos # (Auto) 0.0 Baso # (Auto) 0.0 Abs Immat Gran (auto) 0.07 H Absolute Neuts (auto) 7.0 H Absolute Nucleated RBC 0.000 Nucleated RBC % 0.0 Sodium 140 Potassium 3.6 Chloride 107 Carbon Dioxide 31 H Anion Gap 2 L BUN 10 D Creatinine 0.71 Estim Creat Clear Calc 43 Estimated GFR > 60 Glucose 82 Calcium 10.3 H Magnesium 1.8 Total Bilirubin 0.4 AST 25 ALT 10 Alkaline Phosphatase 121 Total Protein 5.7 L Albumin 2.9 L
--- NOTE | 2025-02-18 11:03 | PCPTNOTE ---
attempted PT eval, pt confused, emotional, and crying when asked basic orientation questions, she stated she did not want to participate, will follow
[2025-02-18 14:00] VITALS: BP 115/78; PULSE 91; RESP 18; TEMP 36.4; O2SAT 99
--- NOTE | 2025-02-18 15:47 | PM.IMPN2 ---
Assessment and Plan Assessment and Plan (1) Hypoxia: Code(s): R09.02 - Hypoxemia Status: Acute (2) Community acquired pneumonia: Code(s): J18.9 - Pneumonia, unspecified organism Status: Acute (3) Rhinitis: Code(s): J31.0 - Chronic rhinitis Status: Acute Plan Presented with hematemesis. No signs since admission. She had a small formed stool on 02/17/2025 brown in color. Diet as tolerated, monitor H&H. GI consultation appreciated. Reported to be a poor endoscopy candidate given the respiratory status, Continue aspirin, consider outpatient EGD when more stable. Oxygenation has improved, now down to 2 L on 02/18/2025. Follow-up blood cultures. Continue ceftriaxone, azithromycin, metronidazole. Start loratadine for rhinitis on 02/17/2025. Continue fluticasone 2 sprays nasally HS. DNR. Subjective Date/time seen: 02/18/25 15:47 Interval history: No major acute overnight events. No reported bowel movement today. Patient has no complaints, denies shortness of breath, cough. Review of Systems Review of Systems: All systems reviewed & are unremarkable except as noted in HPI and below (Subjective) Exam Const: General: comfortable HENMT: Mouth: Yes moist mucous membranes Eyes: Pupils: Equal, round and reactive pupils present Neck: Neck: supple Resp: Effort & Inspection: normal respiratory effort Cardio: Rate: regular rate Rhythm: regular rhythm GI: Inspection: non-distended GI Palp: Yes Soft to palpation Extrem: General: no edema Objective Data Vital Signs Vital Signs: Vital Signs - 24 hr 02/17/25 20:00 02/17/25 21:54 02/18/25 06:00 Temperature 97.8 F 98.1 F Pulse Rate 73 72 Respiratory Rate 20 18 Blood Pressure 117/52 L 128/66 Pulse Oximetry 98 99 100 Oxygen Delivery Nasal Cannula Oxygen Flow Rate 4 02/18/25 08:50 02/18/25 14:00 Temperature 97.5 F L Pulse Rate 72 91 Respiratory Rate 18 18 Blood Pressure 115/78 Pulse Oximetry 100 99 Oxygen Delivery Nasal Cannula Oxygen Flow Rate 2 Intake/Output Intake/Output: Intake & Output 02/15/25 02/16/25 02/17/25 02/18/25 23:59 23:59 23:59 23:59 Intake Total 1490 940 770 Output Total 1250 Balance 1490 -310 770 Meds/Results Medications: Active Medications Generic Name Dose Route Start Last Admin Trade Name Freq PRN Reason Stop Dose Admin Acetaminophen 650 mg 02/16/25 09:45 Acetaminophen 325 Mg Tablet PO Q4H PRN Mild Pain (1-3) or Fever Hydrocodone Bitart/Acetaminophen 1 tab 02/16/25 09:45 Hydrocodone/Acetaminophen (*Crx) 5-325 Mg Tablet PO Q4H PRN Pain Rated 4-6 Aspirin 81 mg 02/17/25 09:00 02/18/25 08:47 Aspirin 81 Mg Enteric Tablet PO 81 mg DAILY ZANE Administration Fluticasone Propionate 2 spray 02/16/25 21:00 02/17/25 20:24 Fluticasone Propionate 0.05% Na Spr 16 Gm Btl (*Bkc) NASAL 2 spray HS ZANE Administration Ceftriaxone Sodium 1 gm/ 50 mls @ 100 mls/hr 02/17/25 09:00 02/18/25 10:25 Sodium Chloride IVPB Infused Q24H ZANE Infusion Azithromycin 500 mg/ Sodium 250 mls @ 250 mls/hr 02/17/25 09:00 02/18/25 09:46 Chloride IVPB 02/20/25 09:59 Infused Q24H ZANE Infusion Metronidazole 500 mg in 100 mls @ 100 mls/hr 02/16/25 14:35 02/18/25 14:36 Flagyl 500 Mg/Iso Soln 100 Ml IVPB 100 mls/hr Q8HR ZANE Administration Loratadine 10 mg 02/17/25 18:10 02/18/25 08:47 Loratadine 10 Mg Tablet PO 10 mg QAM ZANE Administration Mirtazapine 15 mg 02/16/25 21:00 02/17/25 20:24 Mirtazapine 15 Mg Tablet PO 15 mg HS ZANE Administration Ondansetron HCl 4 mg 02/16/25 09:45 Ondansetron Inj 4 Mg/2 Ml Vial IV PUSH Q4H PRN Nausea Oxybutynin Chloride 5 mg 02/17/25 09:00 02/18/25 08:47 Oxybutynin Chloride 5 Mg Tablet PO 5 mg DAILY ZANE Administration Pantoprazole Sodium 40 mg 02/17/25 09:00 Pantoprazole 40 Mg Tablet PO On Hold: 02/17/25 09:00 DAILY ZANE Comment: HOLD WHILE IV PUSH ORDER IS ACTIVE Pantoprazole Sodium 40 mg 02/16/25 21:00 02/18/25 08:52 Pantoprazole Sodium Iv 40 Mg Vial IV PUSH 40 mg Q12HR ZANE Administration Radiology Results: ITS Impressions Chest X-Ray 02/16/25 08:43 IMPRESSION: 1. Large airspace disease right lung. Abdomen/Pelvis CT 02/16/25 08:44 IMPRESSION: 1. Right lung airspace disease. 2. No acute abnormality within abdomen or pelvis. Labs Labs: Laboratory Results - last 24 hr 02/18/25 05:39 WBC 10.3 H RBC 3.90 L Hgb 11.0 L Hct 34.2 L MCV 87.7 MCH 28.2 MCHC 32.2 RDW 14.3 Plt Count 248 MPV 12.1 H Immature Gran % (Auto) 0.7 H Neut % (Auto) 67.8 Lymph % (Auto) 22.0 Bennett % (Auto) 9.2 H Eos % (Auto) 0.0 Baso % (Auto) 0.3 Lymph # (Auto) 2.26 Bennett # (Auto) 0.9 H Eos # (Auto) 0.0 Baso # (Auto) 0.0 Abs Immat Gran (auto) 0.07 H Absolute Neuts (auto) 7.0 H Absolute Nucleated RBC 0.000 Nucleated RBC % 0.0 Sodium 140 Potassium 3.6 Chloride 107 Carbon Dioxide 31 H Anion Gap 2 L BUN 10 D Creatinine 0.71 Estim Creat Clear Calc 43 Estimated GFR > 60 Glucose 82 Calcium 10.3 H Magnesium 1.8 Total Bilirubin 0.4 AST 25 ALT 10 Alkaline Phosphatase 121 Total Protein 5.7 L Albumin 2.9 L
[2025-02-18] MEDS: FLUTICASONE PROPIONATE 0.05% NA SPR 16 GM BTL (*BKC) 2 SPRAY NASAL (21:02)
[2025-02-18] MEDS: MIRTAZAPINE 15 MG TABLET PO (21:02)
[2025-02-18 21:58] VITALS: BP 140/55; PULSE 75; RESP 20; TEMP 36.4; O2SAT 98
[2025-02-19] MEDS: metroNIDAZOLE 500 MG/ISO 100ML 500 MG/100 ML BAG 100 MG IVPB ×2 (05:03→14:21)
[2025-02-19 06:00] VITALS: BP 135/47; PULSE 72; RESP 16; TEMP 36.4; O2SAT 97
[2025-02-19 08:00] VITALS: O2SAT 95
[2025-02-19 09:11] VITALS: PULSE 72; O2SAT 97
[2025-02-19] MEDS: AZITHROMYCIN IV 500 MG in SODIUM CHLORIDE 0.9% IV 250 ML IVPB (11:28)
[2025-02-19] MEDS: cefTRIAXone 1 GM in SODIUM CHLORIDE 0.9% IV 50 ML 100 ML IVPB (11:29)
[2025-02-19] MEDS: PANTOPRAZOLE SODIUM IV 40 MG VIAL IV PUSH (11:32)
[2025-02-19] MEDS: LORATADINE 10 MG TABLET PO (11:41)
[2025-02-19] MEDS: ASPIRIN 81 MG ENTERIC TABLET PO (11:41)
--- NOTE | 2025-02-19 13:54 | WPDGIPROGNO ---
Progress Note: A&P Assessment and Plan (1) Hematemesis: Qualifiers: Nausea presence: unspecified Qualified Code(s): K92.0 - Hematemesis Code(s): K92.0 - Hematemesis Status: Acute Plan 7-year-old female with nausea vomiting, abdominal pain, and GI bleed that has resolved. Discussed with the patient's who was in the room during the interview. Will see the patient as needed. Time Spent With Patient Time with patient: less than 15 minutes Subjective Date/time seen: 02/19/25 13:54 Interval history: Patient feels much better. No vomiting. No hematemesis. No abdominal pain. Review of Systems Review of Systems: All systems reviewed & are unremarkable except as noted in HPI and below (Subjective) Exam Const: General: comfortable HENMT: Mouth: Yes moist mucous membranes Eyes: Pupils: Equal, round and reactive pupils present Neck: Neck: supple Resp: Effort & Inspection: normal respiratory effort Cardio: Rate: regular rate Rhythm: regular rhythm GI: Inspection: non-distended GI Palp: Yes Soft to palpation Extrem: General: no edema Objective Data Vital Signs Vital Signs: Vital Signs - 24 hr 02/18/25 14:00 02/18/25 21:58 02/19/25 06:00 Temperature 97.5 F L 97.6 F 97.6 F Pulse Rate 91 75 72 Respiratory Rate 18 20 16 Blood Pressure 115/78 140/55 L 135/47 L Pulse Oximetry 99 98 97 Oxygen Delivery Oxygen Flow Rate 02/19/25 08:00 02/19/25 08:07 02/19/25 09:11 Temperature Pulse Rate 72 Respiratory Rate Blood Pressure Pulse Oximetry 95 97 Oxygen Delivery Room Air Nasal Cannula Nasal Cannula Oxygen Flow Rate 2 2 Intake/Output Intake/Output: Intake & Output 02/16/25 02/17/25 02/18/25 02/19/25 23:59 23:59 23:59 23:59 Intake Total 9989 417 0623 300 Output Total 1250 850 350 Balance 1490 -310 240 -50 Meds/Results Medications: Active Medications Generic Name Dose Route Start Last Admin Trade Name Freq PRN Reason Stop Dose Admin Acetaminophen 650 mg 02/16/25 09:45 Acetaminophen 325 Mg Tablet PO Q4H PRN Mild Pain (1-3) or Fever Hydrocodone Bitart/Acetaminophen 1 tab 02/16/25 09:45 Hydrocodone/Acetaminophen (*Crx) 5-325 Mg Tablet PO Q4H PRN Pain Rated 4-6 Aspirin 81 mg 02/17/25 09:00 02/19/25 11:41 Aspirin 81 Mg Enteric Tablet PO 81 mg DAILY ZANE Administration Fluticasone Propionate 2 spray 02/16/25 21:00 02/18/25 21:02 Fluticasone Propionate 0.05% Na Spr 16 Gm Btl (*Bkc) NASAL 2 spray HS ZANE Administration Ceftriaxone Sodium 1 gm/ 50 mls @ 100 mls/hr 02/17/25 09:00 02/19/25 11:59 Sodium Chloride IVPB Infused Q24H ZANE Infusion Azithromycin 500 mg/ Sodium 250 mls @ 250 mls/hr 02/17/25 09:00 02/19/25 12:28 Chloride IVPB 02/20/25 09:59 Infused Q24H ZANE Infusion Metronidazole 500 mg in 100 mls @ 100 mls/hr 02/16/25 14:35 02/19/25 05:03 Flagyl 500 Mg/Iso Soln 100 Ml IVPB 100 mls/hr Q8HR ZANE Administration Loratadine 10 mg 02/17/25 18:10 02/19/25 11:41 Loratadine 10 Mg Tablet PO 10 mg QAM ZANE Administration Mirtazapine 15 mg 02/16/25 21:00 02/18/25 21:02 Mirtazapine 15 Mg Tablet PO 15 mg HS ZANE Administration Ondansetron HCl 4 mg 02/16/25 09:45 Ondansetron Inj 4 Mg/2 Ml Vial IV PUSH Q4H PRN Nausea Oxybutynin Chloride 5 mg 02/17/25 09:00 02/19/25 11:41 Oxybutynin Chloride 5 Mg Tablet PO 5 mg DAILY ZANE Administration Pantoprazole Sodium 40 mg 02/17/25 09:00 Pantoprazole 40 Mg Tablet PO On Hold: 02/17/25 09:00 DAILY ZANE Comment: HOLD WHILE IV PUSH ORDER IS ACTIVE Pantoprazole Sodium 40 mg 02/16/25 21:00 02/19/25 11:32 Pantoprazole Sodium Iv 40 Mg Vial IV PUSH 40 mg Q12HR ZANE Administration Radiology Results: ITS Impressions Chest X-Ray 02/16/25 08:43 IMPRESSION: 1. Large airspace disease right lung. Abdomen/Pelvis CT 02/16/25 08:44 IMPRESSION: 1. Right lung airspace disease. 2. No acute abnormality within abdomen or pelvis.
--- NOTE | 2025-02-19 13:59 | WPDGIPROGNO ---
Subjective Date/time seen: 02/19/25 13:59 Objective Data Vital Signs Vital Signs: Vital Signs - 24 hr 02/18/25 14:00 02/18/25 21:58 02/19/25 06:00 Temperature 97.5 F L 97.6 F 97.6 F Pulse Rate 91 75 72 Respiratory Rate 18 20 16 Blood Pressure 115/78 140/55 L 135/47 L Pulse Oximetry 99 98 97 Oxygen Delivery Oxygen Flow Rate 02/19/25 08:00 02/19/25 08:07 02/19/25 09:11 Temperature Pulse Rate 72 Respiratory Rate Blood Pressure Pulse Oximetry 95 97 Oxygen Delivery Room Air Nasal Cannula Nasal Cannula Oxygen Flow Rate 2 2 Intake/Output Intake/Output: Intake & Output 02/16/25 02/17/25 02/18/25 02/19/25 23:59 23:59 23:59 23:59 Intake Total 0093 086 8808 300 Output Total 1250 850 350 Balance 1490 -310 240 -50 Meds/Results Medications: Active Medications Generic Name Dose Route Start Last Admin Trade Name Freq PRN Reason Stop Dose Admin Acetaminophen 650 mg 02/16/25 09:45 Acetaminophen 325 Mg Tablet PO Q4H PRN Mild Pain (1-3) or Fever Hydrocodone Bitart/Acetaminophen 1 tab 02/16/25 09:45 Hydrocodone/Acetaminophen (*Crx) 5-325 Mg Tablet PO Q4H PRN Pain Rated 4-6 Aspirin 81 mg 02/17/25 09:00 02/19/25 11:41 Aspirin 81 Mg Enteric Tablet PO 81 mg DAILY ZANE Administration Fluticasone Propionate 2 spray 02/16/25 21:00 02/18/25 21:02 Fluticasone Propionate 0.05% Na Spr 16 Gm Btl (*Bkc) NASAL 2 spray HS ZANE Administration Ceftriaxone Sodium 1 gm/ 50 mls @ 100 mls/hr 02/17/25 09:00 02/19/25 11:59 Sodium Chloride IVPB Infused Q24H ZANE Infusion Azithromycin 500 mg/ Sodium 250 mls @ 250 mls/hr 02/17/25 09:00 02/19/25 12:28 Chloride IVPB 02/20/25 09:59 Infused Q24H ZANE Infusion Metronidazole 500 mg in 100 mls @ 100 mls/hr 02/16/25 14:35 02/19/25 05:03 Flagyl 500 Mg/Iso Soln 100 Ml IVPB 100 mls/hr Q8HR ZANE Administration Loratadine 10 mg 02/17/25 18:10 02/19/25 11:41 Loratadine 10 Mg Tablet PO 10 mg QAM ZANE Administration Mirtazapine 15 mg 02/16/25 21:00 02/18/25 21:02 Mirtazapine 15 Mg Tablet PO 15 mg HS ZANE Administration Ondansetron HCl 4 mg 02/16/25 09:45 Ondansetron Inj 4 Mg/2 Ml Vial IV PUSH Q4H PRN Nausea Oxybutynin Chloride 5 mg 02/17/25 09:00 02/19/25 11:41 Oxybutynin Chloride 5 Mg Tablet PO 5 mg DAILY ZANE Administration Pantoprazole Sodium 40 mg 02/17/25 09:00 Pantoprazole 40 Mg Tablet PO On Hold: 02/17/25 09:00 DAILY ZANE Comment: HOLD WHILE IV PUSH ORDER IS ACTIVE Pantoprazole Sodium 40 mg 02/16/25 21:00 02/19/25 11:32 Pantoprazole Sodium Iv 40 Mg Vial IV PUSH 40 mg Q12HR ZANE Administration Radiology Results: ITS Impressions Chest X-Ray 02/16/25 08:43 IMPRESSION: 1. Large airspace disease right lung. Abdomen/Pelvis CT 02/16/25 08:44 IMPRESSION: 1. Right lung airspace disease. 2. No acute abnormality within abdomen or pelvis.
--- NOTE | 2025-02-19 16:13 | P.DS_ITS ---
DS: Admitting Diagnosis Discharge Date 02/19/2025 Admitting Diagnosis Emesis DS: Discharge Diagnosis Discharge Diagnosis (1) Schizoaffective disorder: Code(s): F25.9 - Schizoaffective disorder, unspecified Status: Chronic (2) Hematemesis: Qualifiers: Nausea presence: unspecified Qualified Code(s): K92.0 - Hematemesis Code(s): K92.0 - Hematemesis Status: Acute (3) Pneumonia: Code(s): J18.9 - Pneumonia, unspecified organism Status: Acute (4) Hypoxia: Code(s): R09.02 - Hypoxemia Status: Acute DS: Summary Hospital Course Hospital Course: 79-year-old female presents with hematemesis. After discussed with patient and family gastroenterology decided to pursue conservative management. Aspirin resume. No further issues. Hemoglobin stable. Hypoxia resolved likely due to aspiration pneumonia. Will be discharged on 1 more day of levofloxacin. And metronidazole. Blood pressure at goal, clonidine held. All other medications resumed. Discharged in stable condition to her usual facility. Patient was DNR. Time Spent with Patient Time attestation: Total time spent providing and/or coordinating discharge services: Time spent: Greater than 30 minutes Exam Const: General: comfortable and no acute distress HENMT: Mouth: Yes moist mucous membranes Eyes: Pupils: Equal, round and reactive pupils present Neck: Neck: supple Resp: Effort & Inspection: normal respiratory effort Auscultation: clear to auscultation bilaterally Cardio: Rate: regular rate Rhythm: regular rhythm GI: GI Palp: Yes Soft to palpation Extrem: General: no edema DS: Data Data Completed and Pending Labs on day of discharge: Preliminary micro results at discharge 02/16/25 09:46 Blood Culture - Preliminary Blood 02/16/25 09:46 Blood Culture - Preliminary Blood Discharge Plan Discharge Attending physician on discharge: Juliana Lewis Consulting providers: Brittney Warren Discharging Clinician: Juliana Lewis Patient Disposition: [facility] Activity: june shower Diet: as tolerated Patient Instructions: Antibiotic Form Patient Language: Portuguese Stand Alone Forms: General Discharge Information Discharge Medications: New levofloxacin 750 mg tablet 750 mg PO DAILY Qty: 1 0RF Continued aspirin 81 mg Tablet,Delayed Release (Dr/Ec) 81 mg PO DAILY acetaminophen 500 mg Tablet 1,000 mg PO Q4H PRN (Reason: Pain) docusate sodium 100 mg Capsule 100 mg PO HS clozapine 25 mg tablet 25 mg PO BID Rx Instructions: 125 mg po bid fluticasone propionate 50 mcg/actuation spray,suspension 2 spray INTRANASAL HS escitalopram oxalate 10 mg tablet 10 mg PO HS clozapine 50 mg tablet 150 mg PO HS Rx Instructions: 150 mg po q hs Calcium 600 with Vitamin D3 600 mg-10 mcg (400 unit) Tablet,Chewable 1 tablet PO DAILY Linzess 145 mcg capsule 145 mcg PO DAILY pantoprazole 40 mg tablet,delayed release (DR/EC) 40 mg PO DAILY oxybutynin chloride 5 mg tablet 5 mg PO DAILY multivitamin with iron Tablet 1 tablet PO DAILY mirtazapine 15 mg tablet 15 mg PO HS cholecalciferol (vitamin D3) [Vitamin D3] 50 mcg (2,000 unit) tablet 50 mcg PO DAILY Held clozapine 100 mg tablet 100 mg PO BID Hold Instructions: Review with primary care Date of admission: 02/17/25 07:22 Primary Care Provider: BernaFannie Admitting Provider: Sonja Corrales Attending physician on admission: Sonja Corrales Condition: Stable Hospitalist MIPS Heart Failure (Exclusion) Patient has history of Heart Transplant or Left Ventricular Assistive Device?: No IF YES, STOP HERE Heart Failure (Qualifier) Patient has current or prior documentation of LVEF less than or equal to 40%, or mod/servere depressed LVSF?: No IF NO, STOP HERE
== END 2025-02-19 19:50 | DRG 178 ==
LOC: ANHED 09:19 → ANH3MEDSUR 10:14
PROVIDERS: Student in an Organized Health Care Education/Training Program; Admitting Provider Internal Medicine; Emergency Provider Emergency Medicine; PCP Internal Medicine; Visit Provider General Practice
DX: J69.0 Pneumonitis due to inhalation of food and vomit (principal); K92.0 Hematemesis; R09.02 Hypoxemia; F25.9 Schizoaffective disorder, unspecified; R41.841 Cognitive communication deficit; K21.9 Gastro-esophageal reflux disease without esophagitis; E21.3 Hyperparathyroidism, unspecified; E78.5 Hyperlipidemia, unspecified; F31.9 Bipolar disorder, unspecified; Z96.641 Presence of right artificial hip joint; Z66 Do not resuscitate; D64.9 Anemia, unspecified; J31.0 Chronic rhinitis
CPT/HCPCS: 36415; 71046; 74177; 80053; 81001; 83605; 83690; 83735; 85025; 87040; 87086; 87637; 92610; 96361; 96365; 96375; 97162; 99285; A9270; G0378; J0456; J0696; J1836; J2405; J2470; J7030; J7050; Q9967